=== PATIENT | male | born 1940 | race Caucasian/White ===

== ENCOUNTER 2020-11-08 02:52 | Inpatient (IN) ==
[2020-11-08 03:33] LABS: Basophils # (auto) 0.01 K/uL (0-0.2); Basophils % (auto) 0.1 %; Eosinophils # (auto) 0.75 K/uL (0-0.5); Eosinophils % (auto) 5.7 %; Hematocrit (blood only) 42.8 % (42-52); Hemoglobin 14.9 g/dL (14.0-18.0); Immature Granulocytes # (auto) 0.04 K/uL (0.00-0.02); Immature Granulocytes % (auto) 0.3 %; Lymphocytes # (auto) 1.04 K/uL (1.2-3.4); Lymphocytes % (auto) 7.9 %; Mean Corpuscular Hemoglobin 31.4 pg (25-34); Mean Corpuscular Hgb Conc 34.8 g/dL (32-36); Mean Corpuscular Volume 90.3 fL (80-100); Mean Platelet Volume 9.6 fL (7.4-10.4); Monocytes # (auto) 0.73 K/uL (0.11-0.59); Monocytes % (auto) 5.5 %; Neutrophils % (auto) 80.5 %; Platelet Count 254 K/uL (130-400); RDW Coefficient of Variation 14.1 % (11.5-14.5); RDW Standard Deviation 45.8 fL (36.4-46.3); Red Blood Count 4.74 M/uL (4.7-6.1); White Blood Count 13.17 K/uL (4.8-10.8)
[2020-11-08 03:44] LABS: Base Excess ABG 0.1 mEq/L (-9-1.8); HCO3 ABG 23 mmol/L (19-24); Oxygen Saturation ABG 91.6 % (90-95); PCO2 ABG 33 mmHg (35-46); PO2 ABG 55 mmHg (80-95); pH ABG 7.46 (7.35-7.45)
[2020-11-08 03:51] LABS: Allen Test Pos (Pos)
[2020-11-08 03:52] LABS: Albumin Level 3.2 gm/dl (3.4-5.0); BUN Creatinine Ratio 12.6 (10-20); Calcium 8.4 mg/dl (8.5-10.1); Creatinine Clr Calc Pharmacy 53.7 ml/min; Est GFR (African American) 63.7; Est GFR (Non-African American) 54.9; Potassium 3.7 mmol/L (3.5-5.1)
[2020-11-08 03:54] LABS: Bilirubin,Total 0.5 mg/dl (0.2-1); Globulin 3.2 gm/dl (2.5-4.0); Total Protein 6.4 gm/dl (6.4-8.2); Troponin I 0.02 ng/ml (0-0.045)
[2020-11-08 04:23] LABS: Influenza A virus by PCR Negative (Neg); Influenza B virus by PCR Negative (Neg); RSV by PCR Negative (Neg)
[2020-11-08 04:42] LABS: SARS CoV2 RNA(COVID-19) InHosp POSITIVE (Negative)
[2020-11-08] MEDS ORDERED: dexAMETHasone 6 MG in SYRINGE 0 ML IV STA (05:48)
[2020-11-08] MEDS ORDERED: LEVALBUTEROL TARTRATE 15 GM HFA.AER.AD INH STA (05:48)
[2020-11-08] MEDS ORDERED: DEXAMETHASONE SOD INJ 4 MG/ML VIAL IV STA (05:53)
[2020-11-08 06:10] LABS: Partial Thromboplastin Ratio 0.9; Partial Thromboplastin Time 23.9 Seconds (21.0-31.0)
--- NOTE | 2020-11-08 06:27 | History & Physical Report ---
Date of Service November 08, 2020 Assessment & Plan (1) Acute hypoxemic respiratory failure: Secondary to COVID-19 pneumonia hypertension, stable hyperlipidemia on statin Rx chronic LBBB hx NAFLD as per records Hyperglycemia, possible prediabetes as per patient past tobacco abuse Medical telemetry Supplemental O2 Decadron, Remdesivir for severe COVID-19 illness MDI RTC (Patient was counseled regarding potential adverse effects from Remdesivir therapy and provided with patient education sheet. Patient also agreeable to convalescent plasma if warranted. Verbal consent obtained for blood product administration.) Pulmonary consult if without improvement Check hemoglobin A1c Basal insulin, ISS BG goal [id number], carb count coverage in anticipation of hyperglycemia following Decadron course DVT prophylaxis. Lovenox subcu Full code Total critical care time was 40 minutes. Text document was generated using [employer] voice recognition software. It may contain grammatical or spelling errors. Kindly contact undersigned for clarification of any documentation item in quest ion. History of Present Illness Chief Complaint: Shortness of breath Primary Care Provider: Tony Dupree MD History obtained from patient and records. Medical history significant for hypertension, hyperlipidemia, chronic left bundle branch block, BPH, kidney stones, NAFLD as per records, possible prediabetes as per patient, past tobacco abuse. Last confinement 2012 for gallstone pancreatitis status post laparoscopic cholecystectomy. Patient had the second dose of his COVID-19 vaccine about 10 days ago. Few days history of nasal congestion, cough productive of clear sputum. Increasing shortness of breath without chest pain. No fluid retention. Ankle swelling from not moving a lot as per patient. No known recent COVID-19 contacts. O2 sats noted to be 80s upon arrival of EMS at home. Patient given neb treatment en route to the hospital. MEDICAL HISTORY: As above. SURGICAL HISTORY: Lithotripsy. Cleft lip and cleft palate surgery. Cholecystectomy FAMILY HISTORY: Melanoma. PERSONAL/SOCIAL HISTORY: Remote tobacco abuse. Denies chronic intake alcohol. Retired from sales work, prior work as an EMT. Allergies Allergy/AdvReac Type Severity Reaction Status Date / Time No Known Allergies Allergy Unknown Verified 11/08/20 03:57 Home Medications Medication Instructions Recorded Confirmed Type metoprolol succinate 100 mg PO QPM 09/22/18 11/08/20 History tamsulosin 0.4 mg PO QPM 09/22/18 11/08/20 History atorvastatin 40 mg PO QPM 11/08/20 11/08/20 History lisinopril 10 mg PO QPM 11/08/20 11/08/20 History Past Med/Surg History Medical History (Updated 11/08/20 @ 06:52 by Ganga Aleman MD) High cholesterol Hx of cleft palate surgically repaired Hypertension Surgical History History of cataract surgery rt. 11/23/18. 4mg versed. no issues. Hx of cholecystectomy Social History Smoking Status: Former smoker Tobacco Type: Cigarettes Hx Alcohol Use: No Hx Substance Use: No Preferred Language: Burkinan Communication Ability: Effective [employer] Project Manager Required: No Beliefs That Will Affect Care: None Current Living Situation: Alone Feels Safe at Home: Yes Assistive Devices: Denture - Upper, Denture - Lower and Glasses Review of Systems Review of Systems: As per HPI, all 10 systems reviewed, all other ROS negative Physical Exam Physical Exam: GENERAL: Comfortable, no respiratory distress, obese, pleasant SKIN: Normal color, warm HEENT: [place] palpebral conjunctivae, no ptosis, moist buccal mucosa, nasal cannula in place NECK : Supple, short neck, no tenderness CHEST : Decreased breath sounds, occasional expiratory wheezes, no tenderness HEART : Tachycardic , no obvious murmurs ABDOMEN: Some distention, nontender EXTREMITIES : Minimal LE swelling, no LE tenderness, no other conspicuous deformities noted NEUROLOGIC : Coherent, no facial asymmetry, no other gross focality Results & Data Results & Data ([facility]) Vital Signs (Past 12 Hours) Vital Signs Temp Pulse Pulse Resp BP Pulse Ox 11/08/20 06:25 101 H 22 97 11/08/20 05:30 95 H 19 94 11/08/20 05:00 87 21 96 11/08/20 04:30 108 H 19 93 11/08/20 04:00 102 H 23 91 11/08/20 03:47 92 11/08/20 03:30 108 H 36 H 89 L 11/08/20 03:10 36.8 C 104 H 18 88 L 11/08/20 03:03 113 H 29 H 87 L 11/08/20 03:01 117 H 26 H 116/71 87 L Laboratory Results Laboratory Results WBC 13.17 K/uL (4.8-10.8) H 11/08/20 03:21 RBC 4.74 M/uL (4.7-6.1) 11/08/20 03:21 Hgb 14.9 g/dL (14.0-18.0) 11/08/20 03:21 Hct 42.8 % (42-52) 11/08/20 03:21 MCV 90.3 fL (80-100) 11/08/20 03:21 MCH 31.4 pg (25-34) 11/08/20 03:21 MCHC 34.8 g/dL (32-36) 11/08/20 03:21 RDW Std Deviation 45.8 fL (36.4-46.3) 11/08/20 03:21 RDW Coeff of Norma 14.1 % (11.5-14.5) 11/08/20 03:21 Plt Count 254 K/uL (130-400) 11/08/20 03:21 MPV 9.6 fL (7.4-10.4) 11/08/20 03:21 Immature Gran % (Auto) 0.3 % 11/08/20 03:21 Neut % (Auto) 80.5 % 11/08/20 03:21 Lymph % (Auto) 7.9 % 11/08/20 03:21 Leake % (Auto) 5.5 % 11/08/20 03:21 Eos % (Auto) 5.7 % 11/08/20 03:21 Baso % (Auto) 0.1 % 11/08/20 03:21 Neut # (Auto) 10.60 K/uL (1.4-6.5) H 11/08/20 03:21 Lymph # (Auto) 1.04 K/uL (1.2-3.4) L 11/08/20 03:21 Leake # (Auto) 0.73 K/uL (0.11-0.59) H 11/08/20 03:21 Eos # (Auto) 0.75 K/uL (0-0.5) H 11/08/20 03:21 Baso # (Auto) 0.01 K/uL (0-0.2) 11/08/20 03:21 Immature Gran # (Auto) 0.04 K/uL (0.00-0.02) H 11/08/20 03:21 APTT 23.9 Seconds (21.0-31.0) 11/08/20 03:26 PTT Ratio 0.9 11/08/20 03:26 ABG pH 7.46 (7.35-7.45) H 11/08/20 03:33 ABG pCO2 33 mmHg (35-46) L 11/08/20 03:33 ABG pO2 55 mmHg (80-95) L 11/08/20 03:33 ABG HCO3 23 mmol/L (19-24) 11/08/20 03:33 ABG O2 Saturation 91.6 % (90-95) 11/08/20 03:33 ABG Base Excess 0.1 mEq/L (-9-1.8) 11/08/20 03:33 Shahbaz Test Pos (Pos) 11/08/20 03:33 Barometric Pressure 733.0 mm/Hg 11/08/20 03:33 Oxygen Given 2L 11/08/20 03:33 Sodium 141 mmol/L (136-145) 11/08/20 03:21 Potassium 3.7 mmol/L (3.5-5.1) 11/08/20 03:21 Chloride 108 mmol/L (98-107) H 11/08/20 03:21 Carbon Dioxide 26 mmol/L (21-32) 11/08/20 03:21 Anion Gap 7.0 (3-11) 11/08/20 03:21 BUN 16 mg/dl (7-18) 11/08/20 03:21 Creatinine 1.24 mg/dl (0.6-1.4) 11/08/20 03:21 Est Cr Clr Drug Dosing 53.7 ml/min 11/08/20 03:21 Est GFR ( Amer) 63.7 11/08/20 03:21 Est GFR (Non-Af Amer) 54.9 11/08/20 03:21 BUN/Creatinine Ratio 12.6 (10-20) 11/08/20 03:21 Glucose 195 mg/dl (70-99) H 11/08/20 03:21 Calcium 8.4 mg/dl (8.5-10.1) L 11/08/20 03:21 Total Bilirubin 0.5 mg/dl (0.2-1) 11/08/20 03:21 AST 24 U/L (15-37) 11/08/20 03:21 ALT 33 U/L (12-78) 11/08/20 03:21 Alkaline Phosphatase 151 U/L (45-117) H 11/08/20 03:21 Troponin I 0.020 ng/ml (0-0.045) 11/08/20 03:21 NT-Pro-B Natriuret Pep 94 pg/ml (0-1800) 11/08/20 03:21 Total Protein 6.4 gm/dl (6.4-8.2) 11/08/20 03:21 Albumin 3.2 gm/dl (3.4-5.0) L 11/08/20 03:21 Globulin 3.2 gm/dl (2.5-4.0) 11/08/20 03:21 Albumin/Globulin Ratio 1.0 (0.9-2) 11/08/20 03:21 Procalcitonin 0.14 ng/ml (0-0.5) 11/08/20 03:21 COVID-19 Eval Order CovFluRsv at [facility] 11/08/20 03:25 SARS-CoV-2 (PCR) POSITIVE (Negative) A* 11/08/20 03:25 Influenza Type A (PCR) Negative (Neg) 11/08/20 03:25 Influenza Type B (PCR) Negative (Neg) 11/08/20 03:25 RSV (RT-PCR) Negative (Neg) 11/08/20 03:25 Diagnostic Findings Chest x-ray as per my interpretation atelectasis, cardiomegaly EKG as per my interpretation : Rate 110, sinus tachycardia, LAD, LAFB, LBBB
[2020-11-08] MEDS ORDERED: POTASSIUM CHLORIDE 40 MEQ in SODIUM CHLORIDE 0.9% 1000ML 1,000 ML IV ONE (06:31)
[2020-11-08] MEDS ORDERED: REMDESIVIR 200 MG in SODIUM CHLORIDE 0.9% 210 ML IV ONE (06:45)
--- NOTE | 2020-11-08 07:03 | XRay Report ---
XR chest 1V portable CLINICAL HISTORY: Shortness of breath COMPARISON STUDY: 07/19/2019 FINDINGS: The cardiac and mediastinal contours are normal. There is no evidence of focal pulmonary co nsolidation. There is no evidence of failure. No pleural effusions are visualized.[ IMPRESSION: No active disease in the chest. ACT 112: Negative or not required by law. Electronically signed by: Price Fiore M.D. 11/08/2020 7:01 AM
[2020-11-08] MEDS ORDERED: CARBOHYDRATES FOR HYPOGLYCEMIA PO PRN (08:38)
[2020-11-08] MEDS ORDERED: DEXTROSE 50% 50 ML SYRINGE IV PRN (08:38)
[2020-11-08] MEDS ORDERED: GLUCOSE 40% GEL 15 GM TUBE PO PRN (08:38)
[2020-11-08] MEDS ORDERED: GLUCOSE 10 TABS/TUBE PO PRN (08:38)
[2020-11-08] MEDS ORDERED: GLUCAGON FOR INJ 1 MG VIAL SQ PRN (08:38)
[2020-11-08] MEDS ORDERED: ACETAMINOPHEN 325 MG TAB PO PRN (08:38)
[2020-11-08] MEDS ORDERED: PROMETHAZINE HCL 12.5 MG in SODIUM CHLORIDE 0.9% 50 ML IV PRN (08:38)
[2020-11-08 08:53] LABS: Estimated Average Glucose 192 mg/dl; Hemoglobin A1C 8.3 % (4.5-5.6)
[2020-11-08] MEDS ORDERED: INSULIN GLARGINE SOLOSTAR 100 UNITS/ML 3 ML PEN SC SCH (09:00)
[2020-11-08] MEDS: SODIUM CHLORIDE 0.9% 10ML FLUSH IV SCH (09:13)
[2020-11-08 09:23] LABS: D Dimer 780 ug/L FEU (0-500)
[2020-11-08] MEDS: ENOXAPARIN INJ 40 MG/0.4 ML SYR SQ SCH (09:36)
[2020-11-08] MEDS: INSULIN ASPART 100 UNITS/ML 3 ML PEN SC SCH ×4 (09:36→21:25)
[2020-11-08] MEDS ORDERED: PHARMACY GLYCEMIC MGMT CONSULT PRN (09:54)
[2020-11-08] MEDS ORDERED: INSULIN GLARGINE SOLOSTAR 100 UNITS/ML 3 ML PEN SC ONE (10:00)
--- NOTE | 2020-11-08 10:14 | Pharmacy Report ---
Pharmacy Glycemic Short Note 2 - Date of Service November 08, 2020 - Glycemic Short BSG Results (Last 24 hours): 11/08/20 11/08/20 11/08/20 03:21 09:19 09:20 Glucose 195 H POC Glucose 304 H* 306 H* OUTPATIENT ANTIDIABETIC REGIMEN: * N/A * A1c = 8.3% on 11/08/20 ASSESSMENT: * 80yo male with no prior history of diabetes - no antidiabetic agents as an outpatient. A1c today is diagnostic for diabetes as A1c > 6.5% * Goal A1c is likely 8% based on age/comorbidities * Pt initiated on high dose IV steroids with dexamethasone 6mg IV daily for COVID PNA. * Baseline insulin resistance plus steroids resulted in severe hyperglycemia * Will start with high stress weight based dosing of insulin and titrate based on BSG trends. * Would usually use NPH to cover once daily DXM; however Lantus already ordered on admission. Hesitant to use 3 insulins (Lantus + NPH + NovoLog) in an insulin niave patient. Do not want to cause hypo and then an aversion to insulin. Therefore, will start with Lantus + NovoLog and add NPH if needed. * Will start with 0.4 units/kg Lantus (this is the NPH dosing that would be used for DXM) and titrate based on BSGs * Weight/stress of 3 NovoLog q4hrs. PLAN FOR INPATIENT GLYCEMIC CONTROL: * Basal insulin * Lantus 39 units (0.4 units/kg) SQ daily with DXM - dose will need adjusted downwards if dexamethsone held/dc * Bolus insulin * NovoLog per scale ACHS or Q6hrs while NPO * Goal Range: Low 120 mg/dL - High 160 mg/dL * Correction Factor: 15 mg/dL/unit * Nutritional / Prandial insulin per carb ratio of 1 unit per 6 grams CHO consumed PLAN FOR DISCHARGE: * A1c = 8.3% on 11/08/20 * Goal A1c = 8 % based on age and comorbidities * Metformin should be started at the time type 2 diabetes is diagnosed unless there are contraindications. Metformin is effective and safe, is inexpensive, and may reduce risk of cardiovascular events and . * B12 supplementation may be necessary with superintendent container terminal metformin use * FDA has revised the label for metformin to reflect its safety in patients with eGFR 30 mL/min or above * Recommend starting: Metformin XR 500mg PO daily with evening meal. Typically the XR formulation of metformin is better tolerated than the immediate release formulation. Continue to titrate metformin dosing upwards as recommended. Dosage increases should be made in increments of 500 mg weekly, up to 2,000 mg/day PO, given in divided doses. Doses above 2000 mg/day may be better tolerated if divided and given 3 times per day with meals. Max: 2,550 mg/day PO, in divided doses * Support Patient Self-Management * Healthy Lifestyle (diet, exercise, and smoking cessation) * Disease self-management (SMBG) * Prevention of complications (BP, Lipid goals, Immunizations) * Consider outpatient Diabetes Self-Management Education & Support * These recommendations may change if patient is dc on steroid course or renal function declines.
[2020-11-08] MEDS: LEVALBUTEROL TARTRATE 15 GM HFA.AER.AD INH SCH ×4 (11:28→19:10)
[2020-11-08] MEDS ORDERED: OPTIRAY 320 125ml IV ONE (12:24)
--- NOTE | 2020-11-08 12:52 | CT Scan Report ---
CT angio chest PE protocol CT DOSE: 539.68 mGy.cm HISTORY: 80 years-old Male with PE. Acute shortness of breath TECHNIQUE: Multiple CTA images of the chest were obtained after the intravenous administration of Opt iray 320. Coronal and sagittal MIPS were obtained from the axial data set and were submitted for rev iew. All measurements were obtained according to NASCET criteria. A dose lowering technique was util ized adhering to the principles of ALARA. COMPARISON: Chest radiograph of same day FINDINGS: CTA: The heart is normal in size. There is no pericardial effusion. Extensive coronary artery calcificatio ns. Atheromatous plaque of the thoracic aorta without aneurysm or dissection. Mixed plaque at the lei gin of the right subclavian artery is noted resulting in less than 50% luminal narrowing. Pulmonary a rtery is opacified to the level of the segmental branches and demonstrates no filling defects to sugg est thromboembolic disease. CT CHEST: Diminutive thyroid. There are numerous prominent nonenlarged mediastinal and hilar lymph nodes presen t which measure up to 8-9 mm. No pathologically enlarged lymph nodes by CT size criteria. There is no pneumothorax or pleural effusion. Mild subsegmental bibasilar atelectasis. Bronchial wall thickening with bibasilar mucous plugging. 6 mm groundglass nodule of the apical segment right upper lobe, image 239 series 4. 8 mm groundglass nodule of the anterior segment right upper lobe on image 182. 4 mm groundglass nodule of the right lower lobe on image 94. 5 mm groundglass nodule of the supe rior segment left lower lobe on image 209. 7 mm groundglass nodule of the left lower lobe on image 13 3. There are a few scattered low suspicion solid pulmonary nodules noted bilaterally measuring up to 4 mm within the right lung apex. 5 mm fissural nodule of the left midlung is suggestive of a benign l ymph node. Mild nonspecific distal esophageal wall thickening. Hepatic steatosis. Unremarkable soft tissues. Deg enerative changes of the spine and shoulders. IMPRESSION: 1. No pulmonary emboli. 2. Bronchial wall thickening suggestive of bronchitis or reactive airway disease with bibasilar mucou s plugging and mild bibasilar atelectasis. 3. No pleural effusion or airspace consolidation to suggest pneumonia. 4. 5 total bilateral groundglass nodules measure up to 8 mm within the right upper lobe. Follow-up gu idelines provided below. Follow-up CT of the chest is recommended in 6 months. 5. There are a few solid nodules of the lungs measuring up to 4 mm which are of low clinical suspicio n. Please refer to below summary of Fleischner criteria recommendations for follow-up of incidental CT n odules (Mary Beth Kennedy, Guidelines for management of small pulmonary nodules detected on CT scans: A zechariah chi from the Fleischner Society, Radiology 237: [phone].) SOLID NODULES Multiple nodules size: <6 mm * Low risk patients: no routine follow-up * high risk patients: optional CT at 12 months Note: newly detected indeterminate nodule in persons 35 years of age or older. * Low risk patients: minimal or absent history of smoking and/or other known risk factors * high risk patients: history of smoking or of other known risk factors (e.g. first degree relative with lung cancer, or exposure to asbestos, radon, uranium) * if a nodule up to 8 mm is partly solid or is ground glass further follow-up is required after 24 m onths to exclude possible slow growing adenocarcinoma (SERA) SUBSOLID NODULES Multiple subsolid nodules * nodule size <6 mm - follow-up CT at 3-6 months, consider further follow-up at 2 and 4 years if sta ble * nodule size >=6 mm - follow-up CT at 3-6 months, subsequent management based on the most suspiciou s nodule(s) ACT 112: Negative or not required by law. The above report was generated using voice recognition software. It may contain grammatical, syntax o r spelling errors. Electronically signed by: Leonel Argueta M.D. 11/08/2020 12:51 PM
--- NOTE | 2020-11-08 16:50 | Electrocardiogram Report ---
Test Reason : Blood Pressure : / mmHG Vent. Rate : 109 BPM Atrial Rate : 109 BPM P-R Int : 148 ms QRS Dur : 136 ms QT Int : 368 ms P-R-T Axes : 044 -27 116 degrees QTc Int : 495 ms Sinus tachycardia Left bundle branch block Abnormal ECG When compared with ECG of 19-JUL-2019 11:04, No significant change was found Confirmed by Randolph Beltran ([id number]) on 11/08/2020 4:50:06 PM Referred By: REFERRED SELF Confirmed By:Holland Beltran
--- NOTE | 2020-11-08 16:56 | Hospitalist Progress Note ---
Date of Service November 08, 2020 Assessment & Plan (1) Acute hypoxemic respiratory failure: Secondary to COVID-19 CXR showed no infiltrate CTA chest showed no pulmonary emboli. Bronchial wall thickening suggestive of bronchitis or reactive airway disease with bibasilar mucous plugging and mild bibasilar atelectasis.No pleural effusion or airspace consolidation to suggest pneumonia. Starting on Dexamethasone and Remdesevir, will continue Currently saturated well on RA Will hold on convalescent plasma since pt saturated 94% and above on RA Will follow antiinflammatory markers such as Ferritin, ESR, CRP and procalcitonin Will add doxycycline or Zithromax for the bronchitis Continue respiratory treatment Will add guaifenesin prn Bronchitis CTA chest showed Bronchial wall thickening suggestive of bronchitis or reactive airway disease with bibasilar mucous plugging and mild bibasilar atelectasis Will add abx to complete 5 days course Lung Nodule CTA chest showed 5 total bilateral groundglass nodules measure up to 8 mm within the right upper lobe. Follow-up guidelines provided below. Follow-up CT of the chest is recommended in 6 months. Diabetes type 2 Most recent Hab1c 8.3 (11/08) Not on any diabetes medication BS elevated Continue Lantus and novolog sliding scale Pharmacy on board for glycemic management HTN BP stable Continue Lisinopril BP stable DVT px on Lovenox Code status Full code Admission and Anticipated Discharge Date Admission Date: November 08, 2020 Subjective Pt was seen and examined for follow up of covid 19 and SOB Sitting at the edge of the bed with no distress Pt said that his breathing is much better He said that he has not been coughing and has been on RA Denies any chest pain, palpitation, dizziness and SOB Physical Exam Physical Exam: General- No acute distress Head- atraumatic Eyes- PERRL, EOMI, ENT- oropharynx clear Neck- supple, no JVD Lungs- clear to auscultation Heart- regular rhythm; no murmur Abdomen- normal bowel sounds, soft, nontender Extremities- no calf tenderness Neuro- alert, oriented x 3; PERRL, EOMI; no facial palsy; no dysarthria Skin- warm & dry Results & Data Results & Data ([facility]) Vital Signs (Past 12 Hours) Vital Signs Temp Pulse Pulse Resp BP BP Pulse Ox 11/08/20 16:17 36.6 C 83 20 108/57 L 93 11/08/20 16:12 73 11/08/20 15:24 80 14 96 11/08/20 13:14 93 11/08/20 11:28 75 16 95 11/08/20 11:14 36.8 C 82 16 121/71 95 11/08/20 10:00 92 H 11/08/20 08:06 36.5 C 102 H 18 150/70 H 93 11/08/20 07:00 88 21 96 11/08/20 06:30 105 H 97 11/08/20 06:25 101 H 22 97 11/08/20 06:00 88 23 94 11/08/20 05:35 98 H 23 104/62 93 11/08/20 05:30 95 H 19 94 11/08/20 05:00 87 21 96
[2020-11-08] MEDS ORDERED: METOPROLOL SUCC 50MG EXT REL TAB PO SCH (21:00)
[2020-11-08] MEDS ORDERED: ATORVASTATIN 40 MG TAB PO SCH (21:00)
[2020-11-08] MEDS ORDERED: lisinopril 10 MG TAB PO SCH (21:00)
[2020-11-08] MEDS ORDERED: TAMSULOSIN HCL 0.4 MG CAP PO SCH (21:00)
[2020-11-09] MEDS: INSULIN ASPART 100 UNITS/ML 3 ML PEN SC SCH ×5 (00:01→17:01)
[2020-11-09] MEDS: DOXYCYCLINE HYCLATE 100 MG CAP PO SCH ×2 (00:14→08:20)
--- NOTE | 2020-11-09 01:04 | Emergency Department Note ---
History of Present Illness General Chief complaint: Respiratory Problems Stated complaint: RESPIRATORY DIFFICULTY Time Seen by Provider: 11/08/20 03:02 History of Present Illness Maximum Pain Intensity: 0 This is a 80-year-old male presenting to the emergency department for evaluation of shortness of breath and difficulty breathing worsening over the past several days. The patient is usually healthy essentially with only a history of hypertension. He has had both of his COVID-19 vaccinations, and believes that he had the Pfizer product. The patient has not had distinct fever at home. His symptoms do worsen with movement and walking. He is not complaining of distinct chest pain or abdominal pain. He has not taken anything [id number] for symptoms. There may be a positional component, or laying down worsens his breathing. He did contact [address] [place] [address] and on EMS arrival his oxygen saturation was 85 to 86% on room air. He does not wear oxygen at home. He does have a very old tobacco history, but ceased more than 40 years ago. He did get a breathing treatment prehospital, and was placed on 3 L nasal cannula which seems to have helped his symptoms. The patient rates his current discomfort a 2/10. Home Medications Medication Instructions Recorded Confirmed Type metoprolol succinate 100 mg PO QPM 09/22/18 11/08/20 History tamsulosin 0.4 mg PO QPM 09/22/18 11/08/20 History atorvastatin 40 mg PO QPM 11/08/20 11/08/20 History lisinopril 10 mg PO QPM 11/08/20 11/08/20 History Allergies Allergy/AdvReac Type Severity Reaction Status Date / Time No Known Allergies Allergy Unknown Verified 11/08/20 03:57 Past Med/Surg History Medical History (Updated 11/09/20 @ 01:07 by Arthur Ospina PA-C) High cholesterol Hx of cleft palate surgically repaired Hypertension Surgical History History of cataract surgery rt. 11/23/18. 4mg versed. no issues. Hx of cholecystectomy Social History Smoking Status: Former smoker Tobacco Type: Cigarettes Hx Alcohol Use: No Hx Substance Use: No Preferred Language: Turkmen Communication Ability: Effective Machine Accountant Required: No Beliefs That Will Affect Care: None Current Living Situation: Spouse Other Information That Helps Us Care for You: No Feels Safe at Home: Yes Safety Concerns: Feels Safe At This Time Assistive Devices: None Review of Systems A total of 10 systems reviewed and were otherwise negative Physical Exam Vital Signs Vital Signs - 24 hr 11/08/20 03:01 11/08/20 03:03 11/08/20 03:10 Temperature 36.8 C Temperature Source Oral Pulse Rate 117 H 113 H 104 H Pulse Rate [Right Finger] Pulse Rate from SpO2 Sensor 117 H 115 H Respiratory Rate 26 H 29 H 18 Respiratory Effort / Characteristics Non-Labored Respiratory Depth Normal Respiratory Pattern Regular Blood Pressure 116/71 Blood Pressure Mean 86 Blood Pressure Position Lying Pulse Oximetry 87 L 87 L 88 L Oxygen Delivery Method Nasal Cannula Oxygen Flow Rate 2 Sepsis Recent Fever Within 48 Hours No Sepsis New/Unexplained Change in Mental Status No Sepsis Action Taken by Nursing No Action Required Oxygen Flow Rate - Titration 92 11/08/20 03:30 11/08/20 03:47 11/08/20 04:00 Temperature Temperature Source Pulse Rate 108 H 102 H Pulse Rate [Right Finger] Pulse Rate from SpO2 Sensor 109 H 99 H Respiratory Rate 36 H 23 Respiratory Effort / Characteristics Respiratory Depth Respiratory Pattern Blood Pressure Blood Pressure Mean Blood Pressure Position Pulse Oximetry 89 L 92 91 Oxygen Delivery Method Nasal Cannula Oxygen Flow Rate 3 Sepsis Recent Fever Within 48 Hours Sepsis New/Unexplained Change in Mental Status Sepsis Action Taken by Nursing Oxygen Flow Rate - Titration 11/08/20 04:30 11/08/20 05:00 11/08/20 05:30 Temperature Temperature Source Pulse Rate 108 H 87 95 H Pulse Rate [Right Finger] Pulse Rate from SpO2 Sensor 109 H 86 93 H Respiratory Rate 19 21 19 Respiratory Effort / Characteristics Respiratory Depth Respiratory Pattern Blood Pressure Blood Pressure Mean Blood Pressure Position Pulse Oximetry 93 96 94 Oxygen Delivery Method Oxygen Flow Rate Sepsis Recent Fever Within 48 Hours Sepsis New/Unexplained Change in Mental Status Sepsis Action Taken by Nursing Oxygen Flow Rate - Titration 11/08/20 05:35 11/08/20 06:00 11/08/20 06:25 Temperature Temperature Source Pulse Rate 98 H 88 Pulse Rate [Right Finger] 101 H Pulse Rate from SpO2 Sensor 96 H 88 Respiratory Rate 23 23 22 Respiratory Effort / Characteristics Spontaneous Respiratory Depth Respiratory Pattern Blood Pressure 104/62 Blood Pressure Mean 76 Blood Pressure Position Pulse Oximetry 93 94 97 Oxygen Delivery Method Nasal Cannula Oxygen Flow Rate 3 Sepsis Recent Fever Within 48 Hours Sepsis New/Unexplained Change in Mental Status Sepsis Action Taken by Nursing Oxygen Flow Rate - Titration 11/08/20 06:30 Temperature Temperature Source Pulse Rate 105 H Pulse Rate [Right Finger] Pulse Rate from SpO2 Sensor 105 H Respiratory Rate Respiratory Effort / Characteristics Respiratory Depth Respiratory Pattern Blood Pressure Blood Pressure Mean Blood Pressure Position Pulse Oximetry 97 Oxygen Delivery Method Oxygen Flow Rate Sepsis Recent Fever Within 48 Hours Sepsis New/Unexplained Change in Mental Status Sepsis Action Taken by Nursing Oxygen Flow Rate - Titration VITALS: Vitals are noted on the nurse's note and reviewed by myself. Vital signs stable with oxygen saturation holding at 92% on 3 L nasal cannula GENERAL: Well-developed, well-nourished, white male, who is in no acute distress and resting comfortably. Patient is cooperative with the examination. HEAD: Normocephalic atraumatic. NECK: Supple without nuchal rigidity. No lymphadenopathy. No thyromegaly. Cervical spine is nontender. HEART: Regular rate and rhythm without murmurs gallops or rubs. LUNGS: Clear to auscultation bilaterally without wheezes, rales or rhonchi. No retractions or accessory muscle use. ABDOMEN: Positive normal bowel sounds x 4. Soft, nontender, without masses or organomegaly. No guarding or rebound tenderness. MUSCULOSKELETAL: No muscle atrophy, erythema, or edema noted. Full range of motion in all extremities. NEURO: Patient was alert and oriented to person place and time. CN II through XII grossly intact. SKIN: The skin was without rashes, erythema, edema, or bruising. Capillary refill less than 2 seconds. Course Administered Medications Atorvastatin Calcium (Atorvastatin 40 Mg Tab) 40 mg PO QPM ROGERS Stop: 12/08/20 20:59 Last Admin: 11/08/20 21:16 Dose: 40 mg Documented by: [id number] Doxycycline Hyclate (Doxycycline Hyclate 100 Mg Cap) 100 mg PO BID ROGERS Stop: 11/15/20 23:29 Last Admin: 11/09/20 00:14 Dose: 100 mg Documented by: [id number] Enoxaparin Sodium (Enoxaparin Inj 40 Mg/0.4 Ml Syr) 40 mg SQ QAM ROGERS Stop: 12/08/20 08:59 Last Admin: 11/08/20 09:36 Dose: 40 mg Documented by: [id number] Potassium Chloride 40 meq/ (Sodium Chloride) 1,020 mls @ 50 mls/hr IV .[id number] Stop: 11/09/20 02:54 Last Infusion: 11/08/20 11:05 Dose: 50 mls/hr Documented by: [id number] Infusion: 11/08/20 09:10 Dose: 0 mls/hr Documented by: [id number] Admin: 11/08/20 09:10 Dose: 50 mls/hr Documented by: [id number] Insulin Aspart (Insulin Aspart 100 Units/Ml 3 Ml Pen) 0 units SC ACHS [facility] Stop: 12/08/20 08:37 Last Admin: 11/08/20 21:25 Dose: Not Given Documented by: [id number] Cosigned by: [id number] Admin: 11/08/20 17:17 Dose: 13 units Documented by: [id number] Cosigned by: [id number] Admin: 11/08/20 11:58 Dose: 13 units Documented by: [id number] Cosigned by: [id number] Admin: 11/08/20 09:36 Dose: 9 units Documented by: [id number] Cosigned by: [id number] Insulin Aspart (Insulin Aspart 100 Units/Ml 3 Ml Pen) 0 units SC TODAY@0000,0400 [facility] Stop: 11/09/20 04:01 Last Admin: 11/09/20 00:01 Dose: Not Given Documented by: [id number] Cosigned by: [id number] Levalbuterol HCl (Levalbuterol Tartrate 15 Gm Hfa.Aer.Ad) 2 puffs INH QIDR [facility] Stop: 12/08/20 08:59 Last Admin: 11/08/20 19:10 Dose: 2 puffs Documented by: [id number] Admin: 11/08/20 15:24 Dose: 2 puffs Documented by: [id number] Admin: 11/08/20 11:28 Dose: 2 puffs Documented by: [id number] Admin: 11/08/20 11:28 Dose: Not Given Documented by: [id number] Lisinopril (Lisinopril 10 Mg Tab) 10 mg PO QPM [facility] Stop: 12/08/20 20:59 Last Admin: 11/08/20 21:17 Dose: 10 mg Documented by: [id number] Metoprolol Succinate (Metoprolol Succ 50mg Ext Rel Tab) 100 mg PO QPM [facility] Stop: 12/08/20 20:59 Last Admin: 02/25/21 21:17 Dose: 100 mg Documented by: [id number] Sodium Chloride (Sodium Chloride 0.9% 10ml Flush) 30 ml IV DAILY@1300 ROGERS Stop: 11/12/20 13:01 Last Admin: 11/08/20 09:13 Dose: 30 ml Documented by: [id number] Tamsulosin HCl (Tamsulosin Hcl 0.4 Mg Cap) 0.4 mg PO QPM ROGERS Stop: 12/08/20 20:59 Last Admin: 11/08/20 21:16 Dose: 0.4 mg Documented by: [id number] Discontinued Medications Dexamethasone (Dexamethasone Sod Inj 4 Mg/Ml Vial) 6 mg IV NOW STA Stop: 11/08/20 05:54 Last Admin: 11/08/20 06:27 Dose: 6 mg Documented by: [id number] Remdesivir 200 mg/ Sodium (Chloride) 250 mls @ 125 mls/hr IV ONE ONE; Protocol Stop: 11/08/20 08:44 Last Infusion: 11/08/20 11:05 Dose: 0 mls/hr Documented by: [id number] Admin: 11/08/20 08:56 Dose: 125 mls/hr Documented by: [id number] Insulin Glargine (Insulin Glargine Solostar 100 Units/Ml 3 Ml Pen) 5 units SC DAILY ROGERS Stop: 12/08/20 08:59 Last Admin: 11/08/20 09:36 Dose: 5 units Documented by: [id number] Cosigned by: [id number] Insulin Glargine (Insulin Glargine Solostar 100 Units/Ml 3 Ml Pen) 34 units SC NOW ONE Stop: 11/08/20 10:01 Last Admin: 11/08/20 11:03 Dose: 34 units Documented by: [id number] Cosigned by: [id number] Ioversol (Optiray 320 125ml) 120 ml IV ONCE ONE Stop: 11/08/20 12:25 Last Admin: 11/08/20 12:25 Dose: 120 ml Documented by: [id number] Levalbuterol HCl (Levalbuterol Tartrate 15 Gm Hfa.Aer.Ad) 2 puffs INH NOW STA Stop: 11/08/20 05:49 Last Admin: 11/08/20 06:25 Dose: 2 puffs Documented by: [id number] Medical Decision Making Differential Diagnosis Differential diagnosis includes, but is not limited to: Myocardial infarction, dysrhythmia, pericarditis, pneumothorax, aortic aneurysm/dissection, DVT/PE, anxiety, GERD, PUD, electrolyte imbalance, thyroid disorder, pneumonia, bronchitis, pancreatitis, and others Laboratory Data Result diagrams: 11/08/20 03:21 11/08/20 03:21 Lab Results 11/08/20 11/08/20 11/08/20 Range/Units 03:21 03:21 03:21 WBC 13.17 H (4.8-10.8) K/uL RBC 4.74 (4.7-6.1) M/uL Hgb 14.9 (14.0-18.0) g/dL Hct 42.8 (42-52) % MCV 90.3 (80-100) fL MCH 31.4 (25-34) pg MCHC 34.8 (32-36) g/dL RDW Std Deviation 45.8 (36.4-46.3) fL RDW Coeff of Norma 14.1 (11.5-14.5) % Plt Count 254 (130-400) K/uL MPV 9.6 (7.4-10.4) fL Immature Gran % (Auto) 0.3 % Neut % (Auto) 80.5 % Lymph % (Auto) 7.9 % [place] % (Auto) 5.5 % Eos % (Auto) 5.7 % Baso % (Auto) 0.1 % Neut # (Auto) 10.60 H (1.4-6.5) K/uL Lymph # (Auto) 1.04 L (1.2-3.4) K/uL [place] # (Auto) 0.73 H (0.11-0.59) K/uL Eos # (Auto) 0.75 H (0-0.5) K/uL Baso # (Auto) 0.01 (0-0.2) K/uL Immature Gran # (Auto) 0.04 H (0.00-0.02) K/uL APTT (21.0-31.0) Seconds PTT Ratio ABG pH (7.35-7.45) ABG pCO2 (35-46) mmHg ABG pO2 (80-95) mmHg ABG HCO3 (19-24) mmol/L ABG O2 Saturation (90-95) % ABG Base Excess (-9-1.8) mEq/L Shahbaz Test (Pos) Barometric Pressure mm/Hg Oxygen Given Sodium 141 (136-145) mmol/L Potassium 3.7 (3.5-5.1) mmol/L Chloride 108 H (98-107) mmol/L Carbon Dioxide 26 (21-32) mmol/L Anion Gap 7.0 (3-11) BUN 16 (7-18) mg/dl Creatinine 1.24 (0.6-1.4) mg/dl Est Cr Clr Drug Dosing 53.7 ml/min Est GFR ( Amer) 63.7 Est GFR (Non-Af Amer) 54.9 BUN/Creatinine Ratio 12.6 (10-20) Glucose 195 H (70-99) mg/dl Estimat Average Glucose mg/dl Hemoglobin A1c (4.5-5.6) % Lactate (0.4-2.0) mmol/L Calcium 8.4 L (8.5-10.1) mg/dl Magnesium 2.0 (1.8-2.4) mg/dl Total Bilirubin 0.5 (0.2-1) mg/dl AST 24 (15-37) U/L ALT 33 (12-78) U/L Alkaline Phosphatase 151 H (45-117) U/L Troponin I 0.020 (0-0.045) ng/ml NT-Pro-B Natriuret Pep 94 (0-1800) pg/ml Total Protein 6.4 (6.4-8.2) gm/dl Albumin 3.2 L (3.4-5.0) gm/dl Globulin 3.2 (2.5-4.0) gm/dl Albumin/Globulin Ratio 1.0 (0.9-2) Procalcitonin 0.14 (0-0.5) ng/ml COVID-19 Eval Order SARS-CoV-2 (PCR) (Negative) Influenza Type A (PCR) (Neg) Influenza Type B (PCR) (Neg) RSV (RT-PCR) (Neg) Blood Type Antibody Screen 11/08/20 11/08/20 11/08/20 Range/Units 03:25 03:25 03:26 WBC (4.8-10.8) K/uL RBC (4.7-6.1) M/uL Hgb (14.0-18.0) g/dL Hct (42-52) % MCV (80-100) fL MCH (25-34) pg MCHC (32-36) g/dL RDW Std Deviation (36.4-46.3) fL RDW Coeff of Norma (11.5-14.5) % Plt Count (130-400) K/uL MPV (7.4-10.4) fL Immature Gran % (Auto) % Neut % (Auto) % Lymph % (Auto) % [place] % (Auto) % Eos % (Auto) % Baso % (Auto) % Neut # (Auto) (1.4-6.5) K/uL Lymph # (Auto) (1.2-3.4) K/uL [place] # (Auto) (0.11-0.59) K/uL Eos # (Auto) (0-0.5) K/uL Baso # (Auto) (0-0.2) K/uL Immature Gran # (Auto) (0.00-0.02) K/uL APTT 23.9 (21.0-31.0) Seconds PTT Ratio 0.9 ABG pH (7.35-7.45) ABG pCO2 (35-46) mmHg ABG pO2 (80-95) mmHg ABG HCO3 (19-24) mmol/L ABG O2 Saturation (90-95) % ABG Base Excess (-9-1.8) mEq/L Shahbaz Test (Pos) Barometric Pressure mm/Hg Oxygen Given Sodium (136-145) mmol/L Potassium (3.5-5.1) mmol/L Chloride (98-107) mmol/L Carbon Dioxide (21-32) mmol/L Anion Gap (3-11) BUN (7-18) mg/dl Creatinine (0.6-1.4) mg/dl Est Cr Clr Drug Dosing ml/min Est GFR ( Amer) Est GFR (Non-Af Amer) BUN/Creatinine Ratio (10-20) Glucose (70-99) mg/dl Estimat Average Glucose mg/dl Hemoglobin A1c (4.5-5.6) % Lactate (0.4-2.0) mmol/L Calcium (8.5-10.1) mg/dl Magnesium (1.8-2.4) mg/dl Total Bilirubin (0.2-1) mg/dl AST (15-37) U/L ALT (12-78) U/L Alkaline Phosphatase (45-117) U/L Troponin I (0-0.045) ng/ml NT-Pro-B Natriuret Pep (0-1800) pg/ml Total Protein (6.4-8.2) gm/dl Albumin (3.4-5.0) gm/dl Globulin (2.5-4.0) gm/dl Albumin/Globulin Ratio (0.9-2) Procalcitonin (0-0.5) ng/ml COVID-19 Eval Order [facility]Rsv at [facility] SARS-CoV-2 (PCR) POSITIVE A* (Negative) Influenza Type A (PCR) Negative (Neg) Influenza Type B (PCR) Negative (Neg) RSV (RT-PCR) Negative (Neg) Blood Type Antibody Screen 11/08/20 11/08/20 11/08/20 Range/Units 03:33 06:15 06:15 WBC (4.8-10.8) K/uL RBC (4.7-6.1) M/uL Hgb (14.0-18.0) g/dL Hct (42-52) % MCV (80-100) fL MCH (25-34) pg MCHC (32-36) g/dL RDW Std Deviation (36.4-46.3) fL RDW Coeff of Norma (11.5-14.5) % Plt Count (130-400) K/uL MPV (7.4-10.4) fL Immature Gran % (Auto) % Neut % (Auto) % Lymph % (Auto) % [place] % (Auto) % Eos % (Auto) % Baso % (Auto) % Neut # (Auto) (1.4-6.5) K/uL Lymph # (Auto) (1.2-3.4) K/uL [place] # (Auto) (0.11-0.59) K/uL Eos # (Auto) (0-0.5) K/uL Baso # (Auto) (0-0.2) K/uL Immature Gran # (Auto) (0.00-0.02) K/uL APTT (21.0-31.0) Seconds PTT Ratio ABG pH 7.46 H (7.35-7.45) ABG pCO2 33 L (35-46) mmHg ABG pO2 55 L (80-95) mmHg ABG HCO3 23 (19-24) mmol/L ABG O2 Saturation 91.6 (90-95) % ABG Base Excess 0.1 (-9-1.8) mEq/L Shahbaz Test Pos (Pos) Barometric Pressure 733.0 mm/Hg Oxygen Given 2L Sodium (136-145) mmol/L Potassium (3.5-5.1) mmol/L Chloride (98-107) mmol/L Carbon Dioxide (21-32) mmol/L Anion Gap (3-11) BUN (7-18) mg/dl Creatinine (0.6-1.4) mg/dl Est Cr Clr Drug Dosing ml/min Est GFR ( Amer) Est GFR (Non-Af Amer) BUN/Creatinine Ratio (10-20) Glucose (70-99) mg/dl Estimat Average Glucose 192 mg/dl Hemoglobin A1c 8.3 H (4.5-5.6) % Lactate (0.4-2.0) mmol/L Calcium (8.5-10.1) mg/dl Magnesium (1.8-2.4) mg/dl Total Bilirubin (0.2-1) mg/dl AST (15-37) U/L ALT (12-78) U/L Alkaline Phosphatase (45-117) U/L Troponin I (0-0.045) ng/ml NT-Pro-B Natriuret Pep (0-1800) pg/ml Total Protein (6.4-8.2) gm/dl Albumin (3.4-5.0) gm/dl Globulin (2.5-4.0) gm/dl Albumin/Globulin Ratio (0.9-2) Procalcitonin (0-0.5) ng/ml COVID-19 Eval Order SARS-CoV-2 (PCR) (Negative) Influenza Type A (PCR) (Neg) Influenza Type B (PCR) (Neg) RSV (RT-PCR) (Neg) Blood Type A Positive Antibody Screen NEGATIVE 11/08/20 Range/Units 06:16 WBC (4.8-10.8) K/uL RBC (4.7-6.1) M/uL Hgb (14.0-18.0) g/dL Hct (42-52) % MCV (80-100) fL MCH (25-34) pg MCHC (32-36) g/dL RDW Std Deviation (36.4-46.3) fL RDW Coeff of Norma (11.5-14.5) % Plt Count (130-400) K/uL MPV (7.4-10.4) fL Immature Gran % (Auto) % Neut % (Auto) % Lymph % (Auto) % [place] % (Auto) % Eos % (Auto) % Baso % (Auto) % Neut # (Auto) (1.4-6.5) K/uL Lymph # (Auto) (1.2-3.4) K/uL [place] # (Auto) (0.11-0.59) K/uL Eos # (Auto) (0-0.5) K/uL Baso # (Auto) (0-0.2) K/uL Immature Gran # (Auto) (0.00-0.02) K/uL APTT (21.0-31.0) Seconds PTT Ratio ABG pH (7.35-7.45) ABG pCO2 (35-46) mmHg ABG pO2 (80-95) mmHg ABG HCO3 (19-24) mmol/L ABG O2 Saturation (90-95) % ABG Base Excess (-9-1.8) mEq/L Shahbaz Test (Pos) Barometric Pressure mm/Hg Oxygen Given Sodium (136-145) mmol/L Potassium (3.5-5.1) mmol/L Chloride (98-107) mmol/L Carbon Dioxide (21-32) mmol/L Anion Gap (3-11) BUN (7-18) mg/dl Creatinine (0.6-1.4) mg/dl Est Cr Clr Drug Dosing ml/min Est GFR ( Amer) Est GFR (Non-Af Amer) BUN/Creatinine Ratio (10-20) Glucose (70-99) mg/dl Estimat Average Glucose mg/dl Hemoglobin A1c (4.5-5.6) % Lactate 1.5 (0.4-2.0) mmol/L Calcium (8.5-10.1) mg/dl Magnesium (1.8-2.4) mg/dl Total Bilirubin (0.2-1) mg/dl AST (15-37) U/L ALT (12-78) U/L Alkaline Phosphatase (45-117) U/L Troponin I (0-0.045) ng/ml NT-Pro-B Natriuret Pep (0-1800) pg/ml Total Protein (6.4-8.2) gm/dl Albumin (3.4-5.0) gm/dl Globulin (2.5-4.0) gm/dl Albumin/Globulin Ratio (0.9-2) Procalcitonin (0-0.5) ng/ml COVID-19 Eval Order SARS-CoV-2 (PCR) (Negative) Influenza Type A (PCR) (Neg) Influenza Type B (PCR) (Neg) RSV (RT-PCR) (Neg) Blood Type Antibody Screen Imaging Data Radiologist's Impression: XR chest 1V portable CLINICAL HISTORY: Shortness of breath COMPARISON STUDY: 07/19/2019 FINDINGS: The cardiac and mediastinal contours are normal. There is no evidence of focal pulmonary consolidation. There is no evidence of failure. No pleural effusions are visualized.[ IMPRESSION: No active disease in the chest. ECG Data Attestation: I personally reviewed and interpreted this ECG as follows: Indication: + SOB/dyspnea Additional Comments: Sinus tachycardia @109 bpm Left bundle branch block Abnormal ECG When compared with ECG of 19-JUL-2019 11:04, No significant change was found MDM Narrative Physical exam and history were performed. Nursing notes, EMR, and Medication List were personally reviewed. Patient appears to have progressive shortness of breath symptoms over the past several days that seem to be acutely exacerbated tonight. The patient was in the mid 80s with his O2 saturation at the time of EMS arrival to his home. His oxygen saturation has improved on 3 L nasal cannula. IV access was established and labs were obtained. Chest x-ray was performed. EKG is as above without acute ST elevation. An order was placed for continuous cardiac monitoring. The monitor shows a rate of 76 with normal sinus rhythm. The patient's blood work is as above and was reviewed. He does have a minimally elevated white blood cell count of 13,000. He does not have a significant anemia or gross electrolyte imbalance. ABG was performed and his PO2 is 55. Lipase and transaminases are not diagnostic. Troponin x1 is negative. Chest x- ray was reviewed by myself and radiology showing no acute process. The patient's COVID-19 test is POSITIVE. The case was discussed with my attending physician, Dr. Ohara, who remained involved in care and decision-making. We agree that the patient is not stable for discharge home. [facility] here in the ER. Please see their dictation for further patient course, plan, and disposition. The chart was completed utilizing [employer] Speech Voice Recognition Software. Grammatical errors, random word insertions, pronoun errors, and incomplete sentences are an occasional consequence of this system due to software limitations, ambient noise, and hardware issues. Any formal questions or concerns about the content, text, or information contained within the body of this dictation should be directly addressed to the provider for clarification. . Impression & Plan Acute hypoxemic respiratory failure, COVID-19, Shortness of breath Discharge Plan Visit Data Chief Complaint: Respiratory Problems Stated Complaint: RESPIRATORY DIFFICULTY ED Provider: Tonia Ohara ED Midlevel Provider: Arthur Ospina Discharge Problem: Acute hypoxemic respiratory failure, COVID-19, Shortness of breath Patient Disposition: Admitted As Inpatient Discharge Instructions Interventions: ED Discharge Assessment Last Done: 11/08/20 07:43
[2020-11-09 07:33] LABS: Basophils # (auto) 0.03 K/uL (0-0.2); Basophils % (auto) 0.2 %; Eosinophils # (auto) 1.31 K/uL (0-0.5); Eosinophils % (auto) 8.4 %; Hematocrit (blood only) 40.4 % (42-52); Hemoglobin 13.8 g/dL (14.0-18.0); Immature Granulocytes # (auto) 0.08 K/uL (0.00-0.02); Immature Granulocytes % (auto) 0.5 %; Lymphocytes # (auto) 2.52 K/uL (1.2-3.4); Lymphocytes % (auto) 16.2 %; Mean Corpuscular Hemoglobin 30.6 pg (25-34); Mean Corpuscular Hgb Conc 34.2 g/dL (32-36); Mean Corpuscular Volume 89.6 fL (80-100); Mean Platelet Volume 9.8 fL (7.4-10.4); Monocytes # (auto) 1.18 K/uL (0.11-0.59); Monocytes % (auto) 7.6 %; Neutrophils # (auto) 10.47 K/uL (1.4-6.5); Neutrophils % (auto) 67.1 %; Platelet Count 266 K/uL (130-400); RDW Coefficient of Variation 14.4 % (11.5-14.5); RDW Standard Deviation 45.8 fL (36.4-46.3); Red Blood Count 4.51 M/uL (4.7-6.1); White Blood Count 15.59 K/uL (4.8-10.8)
[2020-11-09] MEDS: LEVALBUTEROL TARTRATE 15 GM HFA.AER.AD INH SCH (07:34)
[2020-11-09 08:00] LABS: Albumin Level 2.8 gm/dl (3.4-5.0); BUN Creatinine Ratio 16.6 (10-20); C Reactive Protein 2.36 mg/dl (0-0.29); Calcium 8.7 mg/dl (8.5-10.1); Creatinine Clr Calc Pharmacy 62.8 ml/min; Est GFR (Non-African American) 66.4
[2020-11-09 08:05] LABS: Albumin Globulin Ratio 0.8 (0.9-2); Bilirubin,Total 0.5 mg/dl (0.2-1); Ferritin 329.6 ng/ml (8-388); Globulin 3.3 gm/dl (2.5-4.0); Total Protein 6.1 gm/dl (6.4-8.2)
[2020-11-09] MEDS: ENOXAPARIN INJ 40 MG/0.4 ML SYR SQ SCH (08:19)
--- NOTE | 2020-11-09 08:46 | Pharmacy Report ---
Pharmacy Glycemic Short Note 2 - Date of Service November 09, 2020 - Glycemic Short BSG Results (Last 24 hours): 11/08/20 11/08/20 11/08/20 09:19 09:20 11:52 Glucose POC Glucose 304 H* 306 H* 240 H 11/08/20 11/08/20 11/08/20 16:47 21:15 23:48 Glucose POC Glucose 198 H 146 H 152 H 11/09/20 11/09/20 11/09/20 03:35 06:59 07:46 Glucose 138 H POC Glucose 148 H 144 H OUTPATIENT ANTIDIABETIC REGIMEN: * N/A * A1c = 8.3% on 11/08/20 ASSESSMENT: 11/09/20: * BSGs much improved throughout the day yesterday, 306, 240, 198, 146, and 152 mg/dL * Patient received 74 units of insulin (39 units of basal and 35 units of prandial/correctional) * Fasting BSG of 144 mg/dL this morning * Continues on dexamethasone 6 mg IV daily - will cover with 39 units of Lantus (0.4 unit/kg) 11/08/20: * 80yo male with no prior history of diabetes - no antidiabetic agents as an outpatient. A1c today is diagnostic for diabetes as A1c > 6.5% * Goal A1c is likely 8% based on age/comorbidities * Pt initiated on high dose IV steroids with dexamethasone 6mg IV daily for COVID PNA. * Baseline insulin resistance plus steroids resulted in severe hyperglycemia * Will start with high stress weight based dosing of insulin and titrate based on BSG trends. * Would usually use NPH to cover once daily DXM; however Lantus already ordered on admission. Hesitant to use 3 insulins (Lantus + NPH + NovoLog) in an insulin niave patient. Do not want to cause hypo and then an aversion to insulin. Therefore, will start with Lantus + NovoLog and add NPH if needed. * Will start with 0.4 units/kg Lantus (this is the NPH dosing that would be used for DXM) and titrate based on BSGs * Weight/stress of 3 NovoLog q4hrs. PLAN FOR INPATIENT GLYCEMIC CONTROL: * Basal insulin - continue * Lantus 39 units (0.4 units/kg) SQ daily with DXM - dose will need adjusted downwards if dexamethsone held/dc * Bolus insulin - continue * NovoLog per scale ACHS or Q6hrs while NPO * Goal Range: Low 120 mg/dL - High 160 mg/dL * Correction Factor: 15 mg/dL/unit * Nutritional / Prandial insulin per carb ratio of 1 unit per 6 grams CHO consumed PLAN FOR DISCHARGE: * A1c = 8.3% on 11/08/20 * Goal A1c = 8 % based on age and comorbidities * Metformin should be started at the time type 2 diabetes is diagnosed unless there are contraindications. Metformin is effective and safe, is inexpensive, and may reduce risk of cardiovascular events and . * B12 supplementation may be necessary with termite treater helper metformin use * FDA has revised the label for metformin to reflect its safety in patients with eGFR 30 mL/min or above * Recommend starting: Metformin XR 500mg PO daily with evening meal. Typically the XR formulation of metformin is better tolerated than the immediate release formulation. Continue to titrate metformin dosing upwards as recommended. Dosage increases should be made in increments of 500 mg weekly, up to 2,000 mg/day PO, given in divided doses. Doses above 2000 mg/day may be better tolerated if divided and given 3 times per day with meals. Max: 2,550 mg/day PO, in divided doses * Support Patient Self-Management * Healthy Lifestyle (diet, exercise, and smoking cessation) * Disease self-management (SMBG) * Prevention of complications (BP, Lipid goals, Immunizations) * Consider outpatient Diabetes Self-Management Education & Support * These recommendations may change if patient is dc on steroid course or renal function declines.
[2020-11-09] MEDS ORDERED: dexAMETHasone 6 MG in SYRINGE 0 ML IV SCH (09:00)
[2020-11-09] MEDS ORDERED: dexAMETHasone 6 MG in DEXTROSE 5% 25 ML IV SCH (09:00)
[2020-11-09] MEDS ORDERED: INSULIN GLARGINE SOLOSTAR 100 UNITS/ML 3 ML PEN SC SCH (09:00)
[2020-11-09] MEDS ORDERED: REMDESIVIR 100 MG in SODIUM CHLORIDE 0.9% 230 ML IV SCH (12:00)
[2020-11-09] MEDS: SODIUM CHLORIDE 0.9% 10ML FLUSH IV SCH (14:03)
--- NOTE | 2020-11-09 16:42 | Hospitalist Progress Note ---
Date of Service November 09, 2020 Assessment & Plan (1) Acute hypoxemic respiratory failure: Secondary to COVID-19 CXR showed no infiltrate CTA chest showed no pulmonary emboli. Bronchial wall thickening suggestive of bronchitis or reactive airway disease with bibasilar mucous plugging and mild bibasilar atelectasis.No pleural effusion or airspace consolidation to suggest pneumonia. On Dexamethasone and Remdesevir, will discontinue on discharge Currently saturated well on RA Will hold on convalescent plasma since pt saturated 94% and above on RA ESR, ferritin, LDH and procalcitonin are normal CRP elevated at 2.36 Continue respiratory treatment with flutter valve and incentive spirometry PRN Clinically stable very anxious to go home, will discharge home Bronchitis CTA chest showed Bronchial wall thickening suggestive of bronchitis or reactive airway disease with bibasilar mucous plugging and mild bibasilar atelectasis Will complete 5 days course Continue flutter valve and incentive spirometry as needed Lung Nodule CTA chest showed 5 total bilateral groundglass nodules measure up to 8 mm within the right upper lobe. Follow-up guidelines provided below. Follow-up CT of the chest is recommended in 6 months. Diabetes type 2 Most recent Hab1c 8.3 (11/08) Not on any diabetes medication On Lantus and novolog sliding scale during hospital course Pharmacy on board for glycemic management recommended Metformin XR 500mg PO daily with evening meal. Metfromin can be titrate by 500mg weekly if able to tolerate Check HBA1C in 3 months Follow up a healthy diabetes diet and limited concentrated sweet intake HTN BP stable Continue Lisinopril BP stable DVT px on Lovenox Code status Full code Disposition Discharge home today Admission and Anticipated Discharge Date Admission Date: November 08, 2020 Subjective Pt was seen and examined for follow up of covid 19 Sitting in chair with no distress watching golf on the TV He said that he feels fine He said that he has not been coughing He has been on RA since yesterday morning He is very anxious to go home Denies any chest pain, palpitation, dizziness and SOB Physical Exam Physical Exam: General- No acute distress Head- atraumatic Eyes- PERRL, EOMI, ENT- oropharynx clear Neck- supple, no JVD Lungs- clear to auscultation Heart- regular rhythm; no murmur Abdomen- normal bowel sounds, soft, nontender Extremities- no calf tenderness, +trace edema Neuro- alert, oriented x 3; PERRL, EOMI; no facial palsy; no dysarthria Skin- warm & dry Results & Data Results & Data ([facility]) Vital Signs (Past 12 Hours) Vital Signs Temp Pulse Resp BP Pulse Ox 11/09/20 08:06 36.6 C 66 18 116/66 95 11/09/20 07:35 82 18 93
--- NOTE | 2020-11-09 17:53 | Discharge Summary ---
Date of Service November 09, 2020 Admission HPI Per Admitting Provider History obtained from patient and records. Medical history significant for hypertension, hyperlipidemia, chronic left bundle branch block, BPH, kidney stones, NAFLD as per records, possible prediabetes as per patient, past tobacco abuse. Last confinement 2012 for gallstone pancreatitis status post laparoscopic cholecystectomy. Patient had the second dose of his COVID-19 vaccine about 10 days ago. Few days history of nasal congestion, cough productive of clear sputum. Increasing shortness of breath without chest pain. No fluid retention. Ankle swelling from not moving a lot as per patient. No known recent COVID-19 contacts. O2 sats noted to be 80s upon arrival of EMS at home. Patient given neb treatment en route to the hospital. MEDICAL HISTORY: As above. SURGICAL HISTORY: Lithotripsy. Cleft lip and cleft palate surgery. Cholecystectomy FAMILY HISTORY: Melanoma. PERSONAL/SOCIAL HISTORY: Remote tobacco abuse. Denies chronic intake alcohol. Retired from sales work, prior work as an EMT. Admission Exam Per Admitting Provider GENERAL: Comfortable, no respiratory distress, obese, pleasant SKIN: Normal color, warm HEENT: [place] palpebral conjunctivae, no ptosis, moist buccal mucosa, nasal cannula in place NECK : Supple, short neck, no tenderness CHEST : Decreased breath sounds, occasional expiratory wheezes, no tenderness HEART : Tachycardic , no obvious murmurs ABDOMEN: Some distention, nontender EXTREMITIES : Minimal LE swelling, no LE tenderness, no other conspicuous deformities noted NEUROLOGIC : Coherent, no facial asymmetry, no other gross focality Principal Diagnosis Acute hypoxemic respiratory failure: COVID-19 Bronchitis Lung Nodule Diabetes type 2 Hypertension Discharge Exam General- No acute distress Head- atraumatic Eyes- PERRL, EOMI, ENT- oropharynx clear Neck- supple, no JVD Lungs- clear to auscultation Heart- regular rhythm; no murmur Abdomen- normal bowel sounds, soft, nontender Extremities- no calf tenderness, +trace edema Neuro- alert, oriented x 3; PERRL, EOMI; no facial palsy; no dysarthria Skin- warm & dry Discharge Data Allergies Allergy/AdvReac Type Severity Reaction Status Date / Time No Known Allergies Allergy Unknown Verified 11/08/20 03:57 Consultations 11/08/20 05:39 ED Decision to Admit Stat Ordered Studies 11/08/20 10:49 CT angio chest PE protocol Routine CT angio chest PE protocol CT DOSE: 539.68 mGy.cm HISTORY: 80 years-old Male with PE. Acute shortness of breath TECHNIQUE: Multiple CTA images of the chest were obtained after the intravenous administration of Optiray 320. Coronal and sagittal MIPS were obtained from the axial data set and were submitted for review. All measurements were obtained according to NASCET criteria. A dose lowering technique was utilized adhering to the principles of ALARA. COMPARISON: Chest radiograph of same day FINDINGS: CTA: The heart is normal in size. There is no pericardial effusion. Extensive coronary artery calcifications. Atheromatous plaque of the thoracic aorta without aneurysm or dissection. Mixed plaque at the origin of the right subclavian artery is noted resulting in less than 50% luminal narrowing. Pulmonary artery is opacified to the level of the segmental branches and demonstrates no filling defects to suggest thromboembolic disease. CT CHEST: Diminutive thyroid. There are numerous prominent nonenlarged mediastinal and hilar lymph nodes present which measure up to 8-9 mm. No pathologically enlarged lymph nodes by CT size criteria. There is no pneumothorax or pleural effusion. Mild subsegmental bibasilar atelectasis. Bronchial wall thickening with bibasilar mucous plugging. 6 mm groundglass nodule of the apical segment right upper lobe, image 239 series 4. 8 mm groundglass nodule of the anterior segment right upper lobe on image 182. 4 mm groundglass nodule of the right lower lobe on image 94. 5 mm groundglass nodule of the superior segment left lower lobe on image 209. 7 mm groundglass nodule of the left lower lobe on image 133. There are a few scattered low suspicion solid pulmonary nodules noted bilaterally measuring up to 4 mm within the right lung apex. 5 mm fissural nodule of the left midlung is suggestive of a benign lymph node. Mild nonspecific distal esophageal wall thickening. Hepatic steatosis. Unremarkable soft tissues. Degenerative changes of the spine and shoulders. IMPRESSION: 1. No pulmonary emboli. 2. Bronchial wall thickening suggestive of bronchitis or reactive airway disease with bibasilar mucous plugging and mild bibasilar atelectasis. 3. No pleural effusion or airspace consolidation to suggest pneumonia. 4. 5 total bilateral groundglass nodules measure up to 8 mm within the right upper lobe. Follow-up guidelines provided below. Follow-up CT of the chest is recommended in 6 months. 5. There are a few solid nodules of the lungs measuring up to 4 mm which are of low clinical suspicion. Please refer to below summary of Fleischner criteria recommendations for follow- up of incidental CT nodules (Mary Beth Kennedy, Guidelines for management of small pulmonary nodules detected on CT scans: A statement from the Fleischner Society, Radiology 237: [id number].) SOLID NODULES Multiple nodules size: <6 mm * Low risk patients: no routine follow-up * high risk patients: optional CT at 12 months Note: newly detected indeterminate nodule in persons 35 years of age or older. * Low risk patients: minimal or absent history of smoking and/or other known risk factors * high risk patients: history of smoking or of other known risk factors (e.g. first degree relative with lung cancer, or exposure to asbestos, radon, uranium) * if a nodule up to 8 mm is partly solid or is ground glass further follow-up is required after 24 months to exclude possible slow growing adenocarcinoma (SERA) SUBSOLID NODULES Multiple subsolid nodules * nodule size <6 mm - follow-up CT at 3-6 months, consider further follow-up at 2 and 4 years if stable * nodule size >=6 mm - follow-up CT at 3-6 months, subsequent management based on the most suspicious nodule(s) ACT 112: Negative or not required by law. The above report was generated using voice recognition software. It may contain grammatical, syntax or spelling errors. Electronically signed by: Leonel Argueta M.D. 11/08/2020 12:51 PM Dictated: 11/08/20 1240Transcribed: 11/08/20 1240 XR chest 1V portable CLINICAL HISTORY: Shortness of breath COMPARISON STUDY: 07/19/2019 FINDINGS: The cardiac and mediastinal contours are normal. There is no evidence of focal pulmonary consolidation. There is no evidence of failure. No pleural effusions are visualized.[ IMPRESSION: No active disease in the chest. ACT 112: Negative or not required by law. Electronically signed by: Price Fiore M.D. 11/08/2020 7:01 AM Dictated: 11/08/20 0701Transcribed: 11/08/20 0701 Hospital Course (1) Acute hypoxemic respiratory failure: Secondary to COVID-19 CXR showed no infiltrate CTA chest showed no pulmonary emboli. Bronchial wall thickening suggestive of bronchitis or reactive airway disease with bibasilar mucous plugging and mild bibasilar atelectasis.No pleural effusion or airspace consolidation to suggest pneumonia. On Dexamethasone and Remdesevir, will discontinue on discharge Currently saturated well on RA Will hold on convalescent plasma since pt saturated 94% and above on RA ESR, ferritin, LDH and procalcitonin are normal CRP elevated at 2.36 Continue respiratory treatment with flutter valve and incentive spirometry PRN Clinically stable very anxious to go home, will discharge home Bronchitis CTA chest showed Bronchial wall thickening suggestive of bronchitis or reactive airway disease with bibasilar mucous plugging and mild bibasilar atelectasis Will complete 5 days course Continue flutter valve and incentive spirometry as needed Lung Nodule CTA chest showed 5 total bilateral groundglass nodules measure up to 8 mm within the right upper lobe. Follow-up guidelines provided below. Follow-up CT of the chest is recommended in 6 months. Diabetes type 2 Most recent Hab1c 8.3 (11/08) Not on any diabetes medication On Lantus and novolog sliding scale during hospital course Pharmacy on board for glycemic management recommended Metformin XR 500mg PO daily with evening meal. Metfromin can be titrate by 500mg weekly if able to tolerate Check HBA1C in 3 months Follow up a healthy diabetes diet and limited concentrated sweet intake HTN BP stable Continue Lisinopril BP stable DVT px on Lovenox Code status Full code Disposition Discharge home today Total Time Total Time Spent Total Time Spent (In Minutes): 35 minutes Total Time Includes: Examination of the Patient, Discharge Planning, Medication Reconciliation, Communication With Other Providers and Other Discharge Plan Discharge Items Patient Disposition: Home - Self-Care Reason For Visit: RESP FAILURE,SEVERE COVID Discharge Diagnosis: Acute hypoxemic respiratory failure: COVID-19 Bronchitis Lung Nodule Diabetes type 2 Hypertension Activity: Resume your previous activity Non-emergency contact: Primary Care Provider Call non-emergency contact if: you have any medication questions and your temperature is above 101 Follow-up/Referrals: Tony Dupree MD [Primary Care Provider] - (Date & Time 11/12/2020 11:20 Barbara Dupree [facility] Internal Medicine [facility] PLEASE NOTE THAT THIS IS A TELEPHONE APPOINTMENT. YOUR PHYSICIAN WILL CALL YOU AT THE APPOINTMENT TIME. IF YOU HAVE ANY QUESTIONS REGARDING YOUR APPOINTMENT, PLEASE CALL ) Diet: Carb Consistent or DM2 Addtl Attending Provider Instructions: Follow up with your primary care provider Dr. Dupree on 11/12/2020 at 11:20 AM (PLEASE NOTE THAT THIS IS A TELEPHONE APPOINTMENT) Newly diagnosed diabetes. You need to follow a healthy diabetes diet by limiting concentrated sweet intake Since your are recently diagnosed with diabetes, please follow up with your eyes doctor to schedule a routine eye exam Counseling on weight loss Take Metformin XR 500mg PO daily with evening meal for the diabetes (Please start the metformin on Thursday due to contrast given during the admission) your provider will check your HbA1c in 3 months to manage your diabetes You will need to get a repeat CT chest in 6 months to monitor for the lung nodule ( Your provider will order it) Continue incentive spirometry and flutter valve as needed for the mucus plug Complete the course of Doxycycline for the bronchitis Continue to wear mask Continue isolation for 10 days for the day of first symptoms ( or tested positive) Seek medical attention if you develop any symptoms such as fever and shortness of breath, ... Home Isolation COVID-19 Instructions The following information about Home Isolation is from the CDC Website: https://www.cdc.gov/coronavirus/2019-ncov/hcp/bexkdzsa-jliyxlm-lsxvxz.html Stay home except to get medical care People who are mildly ill with COVID-19 are able to isolate at home during their illness. You should restrict activities outside your home, except for getting medical care. Do not go to work, school, or public areas. Avoid using public transportation, ride-sharing, or taxis. Separate yourself from other people and animals in your home People: As much as possible, you should stay in a specific room and away from other people in your home. Also, you should use a separate bathroom, if available. Animals: You should restrict contact with pets and other animals while you are sick with COVID-19, just like you would around other people. Although there have not been reports of pets or other animals becoming sick with COVID-19, it is still recommended that people sick with COVID-19 limit contact with animals until more information is known about the virus. When possible, have another member of your household care for your animals while you are sick. If you are sick with COVID-19, avoid contact with your pet, including petting, snuggling, being kissed or licked, and sharing food. If you must care for your pet or be around animals while you are sick, wash your hands before and after you interact with pets and wear a face mask. Call ahead before visiting your doctor If you have a medical appointment, call the healthcare provider and tell them that you have or may have COVID-19. This will help the healthcare providers office take steps to keep other people from getting infected or exposed. Wear a face mask You should wear a face mask when you are around other people (e.g., sharing a room or vehicle) or pets and before you enter a healthcare providers office. If you are not able to wear a face mask (for example, because it causes trouble breathing), then people who live with you should not stay in the same room with you, or they should wear a face mask if they enter your room. Cover your coughs and sneezes Cover your mouth and nose with a tissue when you cough or sneeze. Throw used tissues in a lined trash can. Immediately wash your hands with soap and water for at least 20 seconds or, if soap and water are not available, clean your hands with an alcohol-based hand locomotive operator helper that contains at least 60% alcohol. Clean your hands often Wash your hands often with soap and water for at least 20 seconds, especially after blowing your nose, coughing, or sneezing; going to the bathroom; and before eating or preparing food. If soap and water are not readily available, use an alcohol-based hand locomotive operator helper with at least 60% alcohol, covering all surfaces of your hands and rubbing them together until they feel dry. Soap and water are the best option if hands are visibly dirty. Avoid touching your eyes, nose, and mouth with unwashed hands. Avoid sharing personal household items You should not share dishes, drinking glasses, cups, eating utensils, towels, or bedding with other people or pets in your home. After using these items, they should be washed thoroughly with soap and water. Clean all high-touch surfaces everyday High touch surfaces include counters, tabletops, doorknobs, bathroom fixtures, toilets, phones, keyboards, tablets, and bedside tables. Also, clean any surfaces that may have blood, stool, or body fluids on them. Use a household cleaning spray or wipe, according to the label instructions. Labels contain instructions for safe and effective use of the cleaning product including precautions you should take when applying the product, such as wearing gloves and making sure you have good ventilation during use of the product. Monitor your symptoms Seek prompt medical attention if your illness is worsening (e.g., difficulty breathing).Beforeseeking care, call your healthcare provider and tell them that you have, or are being evaluated for, COVID-19. Put on a face mask before you enter the facility. These steps will help the healthcare providers office to keep other people in the office or waiting room from getting infected or exposed. Ask your healthcare provider to call the local or state health department. Persons who are placed under active monitoring or facilitated self- monitoring should follow instructions provided by their local health department or occupational health professionals, as appropriate. When working with your local health department check their available hours. If you have a medical emergency and need to call 911, notify the dispatch personnel that you have, or are being evaluated for COVID-19. If possible, put on a face mask before emergency medical services arrive. Discontinuing home isolation Patients with confirmed COVID-19 should remain under home isolation precautions until the risk of secondary transmission to others is thought to be low. The decision to discontinue home isolation precautions should be made on a [id number] basis, in consultation with healthcare providers and state and local health departments. Coronavirus disease 2019 (COVID-19) is a virus that causes a respiratory illness. It is caused by a coronavirus called 2019 novel coronavirus (2019- nCoV). There are many types of coronavirus. Coronaviruses are a very common cause of bronchitis. They may sometimes cause lung infection(pneumonia). Symptoms can range from mild to severe respiratory illness. These viruses are also foundin some animals. COVID-19 was first found in people in [facility], in late 2019. In 2020, several cases of COVID-19 have been confirmed in the [place] Public health officials are working to find the source. How the virus spreads is not yet fully known. It may be spread through droplets of fluid that a person coughs or sneezes into the air. It may be spread if you touch a surface with virus on it, such as a handle or object, and then touch your mouth. What are the symptoms of COVID-19? Some people have no symptoms or mild symptoms. Symptoms may appear 2 to 14 days after contact with the virus. Symptoms can include: Fever Coughing Trouble breathing What are possible complications from COVID-19? In many cases, this virus can cause infection (pneumonia) in both lungs. In some cases, this can cause . How is COVID-19 diagnosed? Your healthcare provider will ask about your symptoms. He or she will also ask about your recent travel and contact with sick people. Testing for the virus is only done through the CDC. If yourhealthcare provider thinks you may have COVID- 19, he or she will work with your local health department and the CDC on testing. Follow all instructions from your healthcare provider. COVID-19 is diagnosed by: Nasal and throat swab. A cotton-tipped swab is wiped inside your nose or throat. This is done to check for viruses in your nasal mucus. Sputum culture. A small sample of mucus coughed from your lungs (sputum) is collected if you have a cough. It is checked for the virus. How is COVID-19 treated? There is currently no medicine to treat the virus. Treatment is done to help your body while it fights the virus. This is known as supportive care. Supportive care may include: Pain medicine. These include acetaminophen and ibuprofen. They are used to help ease pain and reduce fever. Bed rest. This helps your body fight the illness. For severe illness, you may need to stay in the hospital. Care during severe illness may include: IV (intravenous) fluids.These are given through a vein to help keep your body hydrated. Oxygen. Supplemental oxygen or ventilation with a breathing machine (ventilator) may be given. This is done to keep enough oxygen in your body. Are you at risk for COVID-19? If youve been to a place where people have been sick with this virus, you are at risk for infection. You are at risk if you: Recently traveled to an affected area Had contact with a sick person who recently traveled to this area Had contact with a person who was diagnosed with COVID-19 How can COVID-19 be prevented? There is no vaccine yet. The best prevention is to not have contact with the virus. The CDC advises that people should not travel to areas where there are COVID-19 outbreaks right now for any reason that is not urgent. To help prevent spreading the infection, wash your hands often, or use an alcohol-basedhand locomotive operator helper. If you are in an area with COVID-19: Wash your hands often. Or use an alcohol-based hand locomotive operator helper often. Only touch your eyes, nose, or mouth with clean hands. Dont have contact with people who are sick. Follow local instructions about being in public. For example, you may be told to not use public transport for a period of time. Stay away from markets that have live or animals. Wash your hands after touching any animals. Don't touch animals that may be sick. Dont share eating or drinking tools with sick people. Dont kiss someone who is sick. Clean surfaces often with disinfectant. If you were in an area with COVID-19 in the last 14 days: Call your healthcare provider. He or she can talk with local health staff to see what action may be needed. Follow all instructions from your provider. Take your temperature every morning and evening for at least 14 days. This is to check for fever. Keep a record of the readings. Keep watch for symptoms of the virus. Tell your provider right away if you have symptoms. If you were in an area with COVID-19 and have a fever or other symptoms: Dont panic. Keep in mind that other illnesses can cause similar symptoms. Stay away from work, school, and public places. Limit physical contact with family members. Don't kiss anyone or share eating or drinking utensils. Clean surfaces you touch with disinfectant. This is to help prevent the virus from spreading. Call your healthcare provider. Explain that you have been exposed to COVID-19 and have symptoms. Do this before going to any hospital. Wait for instructions. Keep in mind that healthcare staff may wear protective equipment such as masks, gowns, gloves, and eye protection. You may be put in a separate room. This is to prevent the possible virus from spreading. Tell the healthcare staff about recent travel. This includes local travel on public transport. Staff may need to find other people you have been in contact with. Follow all instructions the healthcare staff give you. If you have been diagnosed with COVID-19 Follow all instructions from your healthcare provider. Dont leave your home, except to get medical care. Call your healthcare providers office before going. They can prepare and give you instructions. This will help prevent the virus from spreading. Dont go to work, school, or public areas. Dont use public transport or taxis. Stay away from other people in your home. Have them wear face masks around you. Dont share household items or food. Wear a face mask if you can. This includes at home or in a medical facility. Cover your face with a tissue when you cough or sneeze. Throw the tissue away. Wash your hands. Wash your hands often. Caregivers should: Follow all instructions from healthcare staff. Wear a face mask and protective clothing as advised. Wash hands often. Keep track of the sick persons symptoms. Clean surfaces, fabrics, and laundry thoroughly. Keep other people away from the sick person. When to call your healthcare provider Call your healthcare provider: If youve recently traveled and have symptoms If you have been diagnosed with COVID-19 and your symptoms are worse To learn more To find out more about COVID-19, visit the CDC website at www.cdc.gov/coronavirus/2019-ncov/index.html. [employer]. [address] [place] [address]. All rights reserved. This information is not intended as a substitute for professional medical care. Always follow your healthcare professional's instructions. This information has been adapted from [employer] Pending Studies at Discharge: No Stand-Alone Forms: My [facility] [employer], Smoking Cessation Medications and DC Order Prescriptions: New doxycycline hyclate 100 mg Capsule 100 mg PO BID 4 Days Qty: 8 RF: 0 metformin [Glucophage XR] 500 mg tablet extended release 24 hr 500 mg PO DAILY Qty: 30 RF: 0 Continued metoprolol succinate 100 mg Tablet Extended Release 24 Hr 100 mg PO QPM RF: 0 tamsulosin 0.4 mg Capsule 0.4 mg PO QPM RF: 0 atorvastatin 40 mg tablet 40 mg PO QPM RF: 0 lisinopril 10 mg tablet 10 mg PO QPM RF: 0 Discharge Orders: Discharge Order (Routine); Ordered 11/09/20 Ordered By: Parker Galdamez/Other Patient Handouts: High Blood Sugar (Hyperglycemia), Hypoglycemia (Low Blood Sugar), Managing Type 2 Diabetes, Exercise to Manage Your Blood Sugar, 5 Steps for Eating Healthier, Understanding Type 2 Diabetes, A1C Admission Data Admit Date/Time: 11/08/20 06:31 Attending Provider: Parker Sanford Admit Provider: Ganga Aleman Primary Care Provider: Tony Dupree Other Providers: Ganga Aleman Other Interventions: Discharge Summary Assessment (RN) Last Done: 11/09/20 17:14
== END 2020-11-09 17:40 | disposition home or self-care (01) | DRG 177 ==
LOC: ED 02:52 → 2W 06:31

== ENCOUNTER 2021-07-29 10:00 | Inpatient (IN) ==
[2021-07-29 11:39] LABS: Basophils # (auto) 0.05 K/uL (0-0.2); Basophils % (auto) 0.3 %; Eosinophils # (auto) 5.14 K/uL (0-0.5); Hematocrit (blood only) 45.2 % (42-52); Hemoglobin 15.8 g/dL (14.0-18.0); Immature Granulocytes # (auto) 0.09 K/uL (0.00-0.02); Immature Granulocytes % (auto) 0.5 %; Lymphocytes # (auto) 1.53 K/uL (1.2-3.4); Lymphocytes % (auto) 8.6 %; Mean Corpuscular Hemoglobin 31.2 pg (25-34); Mean Corpuscular Volume 89.3 fL (80-100); Mean Platelet Volume 10.7 fL (7.4-10.4); Monocytes # (auto) 1.01 K/uL (0.11-0.59); Monocytes % (auto) 5.7 %; Neutrophils # (auto) 9.92 K/uL (1.4-6.5); Neutrophils % (auto) 55.9 %; Platelet Count 241 K/uL (130-400); RDW Coefficient of Variation 14.2 % (11.5-14.5); Red Blood Count 5.06 M/uL (4.7-6.1); White Blood Count 17.74 K/uL (4.8-10.8)
[2021-07-29 11:59] LABS: Albumin Level 2.8 gm/dl (3.4-5.0); BUN Creatinine Ratio 11.6 (10-20); Calcium 9.3 mg/dl (8.5-10.1); Creatinine Clr Calc Pharmacy 21.9 ml/min; Est GFR (African American) 22.3 ml/min; Est GFR (Non-African American) 19.2 ml/min; Potassium 4.5 mmol/L (3.5-5.1)
[2021-07-29 12:07] LABS: INR 1.1 (0.9-1.1); Partial Thromboplastin Time 27.5 Seconds (21.0-31.0); Prothrombin Time 11.3 Seconds (9.0-12.0)
[2021-07-29] MEDS ORDERED: SODIUM CHLORIDE 0.9% 1000ML 1,000 ML IV SCH (12:15)
[2021-07-29 12:17] LABS: Albumin Globulin Ratio 0.6 (0.9-2); Bilirubin,Total 0.6 mg/dl (0.2-1); Globulin 4.7 gm/dl (2.5-4.0); Total Protein 7.5 gm/dl (6.4-8.2); Troponin I 0.139 ng/ml (0-0.045)
--- NOTE | 2021-07-29 12:35 | XRay Report ---
XR chest 1V portable HISTORY: Shortness of breath. COMPARISON: Chest 11/08/2020. FINDINGS: No focal lung consolidations to suggest pneumonia. No evidence for pulmonary edema. The hea rt remains top normal in size. No pleural fusions. No pneumothorax. Old, healed right-sided rib fract ures again noted. IMPRESSION: No acute process. ACT 112: Negative or not required by law. Electronically signed by: Ed Corcoran M.D. 07/29/2021 12:33 PM
--- NOTE | 2021-07-29 13:44 | CT Scan Report ---
CT SCAN OF THE ABDOMEN AND PELVIS WITHOUT IV CONTRAST CLINICAL HISTORY: Acute renal insufficiency. Urinary retention. COMPARISON STUDY: MRCP dated 04/14/2013. Chest CT dated 03/15/2021. TECHNIQUE: CT scan of the abdomen and pelvis is performed from the lung bases to the proximal femora. Images are reviewed in the axial, sagittal, and coronal planes. IV contrast was not administered for this examination. Note that the examination is suboptimal without oral and IV contrast. A dose lower ing technique was utilized adhering to the principles of ALARA. CT DOSE: 839.64 mGycm FINDINGS: Lung bases: The heart is normal in size and without pericardial effusion. The coronary arteries are d ensely calcified. There is a small hiatal hernia. Foci of tree-in-bud nodularity are present at both lung bases. No pleural effusion is identified. A 2.1 cm irregular nodule is seen at the right lung ba se on image #39. Peribronchial thickening is present in the lower lobes. Liver: The unenhanced liver is normal in size, contour, and attenuation. There is no intrahepatic milagros iary ductal dilatation. Gallbladder: Surgically absent noting clips in the gallbladder fossa. Spleen: Normal in size and attenuation. Pancreas: The unenhanced pancreas is moderately atrophic and grossly unremarkable. Adrenal glands: Unremarkable. Kidneys: The unenhanced kidneys demonstrate cortical atrophy and are without hydronephrosis. There is a 9 mm calculus in the left renal pelvis seen on image #171. An additional 3 mm nonobstructing calcu justyna is seen in the left lower pole. No right renal calculi are identified and there is no ureteral st one. There is no evidence of contour deforming renal mass lesion. Abdominal vasculature: The abdominal aorta is normal in course and caliber noting advanced atheroscle rotic calcification. Bowel: The small bowel and colon are normal in course and caliber. The appendix is well-visualized a nd normal. Peritoneum: No intraperitoneal free air is identified. Trace free fluid is seen in the pelvis. Lymphadenopathy: None. Pelvic viscera: The prostate gland is enlarged and heterogeneous measuring 5.8 cm in transverse diame ter. The bladder is decompressed and a Huerta catheter and not well evaluated. Foci of intraluminal ga s are likely related to instrumentation. Skeletal structures: The skeletal structures are osteopenic. There is moderate lumbosacral spondylosi s. No lytic or blastic lesions are seen. IMPRESSION: 1. Trace free fluid in the pelvis is a nonspecific but abnormal finding and may be reactive. Clinical correlation will be required. 2. Left-sided nephrolithiasis. 3. Tree-in-bud airspace opacities at both lung bases suggests a nonspecific infectious/inflammatory p neumonitis. Clinical correlation will be required. 4. A 2.1 cm irregular nodular opacity is seen at the right lung base. This is new from 03/15/2021 and l ikely on an infectious/inflammatory basis. Neoplasm is considered much less likely and a follow-up est CT in 3 months time is recommended to document resolution. 5. Prostatomegaly. 6. Additional findings as above. ACT 112: Positive. There are findings on this exam that require communication between the performing entity and the patient following Patient Test Result Information Act ([place] Act 112) guidelines. Electronically signed by: Prasanth Aguayo M.D. 07/29/2021 1:43 PM
[2021-07-29 13:54] LABS: Appearance Urine Cloudy (Clear); Bacteria Urine Automated Negative (Negative); Blood Urine Trace (Negative); Color Urine Dark Yellow; Epithelial Cell Urine Auto >30 /lpf (0-5); Glucose Urine UA Negative (Negative); Ketones Urine 1+ (Negative); Leukocyte Esterase Urine 1+ (Negative); Nitrite Urine Positive (Negative); Protein Urine 1+ (Negative); Specific Gravity Urine 1.023 (1.000-1.030); Urobilinogen Urine Negative (Negative)
[2021-07-29] MEDS ORDERED: cefTRIAXone SODIUM 1,000 MG/50 ML BAG IV STA (14:01)
[2021-07-29] MEDS ORDERED: AZITHROMYCIN 250 MG TAB PO ONE (14:01)
[2021-07-29 14:10] LABS: Bilirubin Urine 1+ (Negative)
[2021-07-29 14:25] LABS: Calcium Oxalate Crystals Urine Present (None Prsent)
[2021-07-29 14:27] LABS: Renal Epithelial Cells Urine 0-5 /lpf (0-5)
--- NOTE | 2021-07-29 15:26 | Emergency Department Note ---
History of Present Illness General Chief Complaint: Shortness of Breath/Dyspnea Stated Complaint: SOB Time Seen by Provider: 07/29/21 12:04 History of Present Illness Provider Complaint: shortness of breath Onset (ago): day(s) (3) Severity: moderate Relieved By: + nothing Exacerbated By: + coughing Context: + recent illness Associated symptoms: + cough, + sputum production and + chest congestion; no fever, no wheezing, no paresthesias, no palpitations, no hemoptysis, no diaphoresis, no syncope or no abdominal pain Home Medications Medication Instructions Recorded Confirmed Type metoprolol succinate 100 mg 100 mg PO DAILY 09/22/18 07/29/21 History tablet,extended release 24 hr tamsulosin 0.4 mg capsule 0.4 mg PO QPM 09/22/18 07/29/21 History atorvastatin 40 mg tablet 40 mg PO QPM 11/08/20 07/29/21 History lisinopril 10 mg tablet 10 mg PO QPM 11/08/20 07/29/21 History montelukast 10 mg tablet 10 mg PO DAILY 04/26/21 07/29/21 History loratadine 10 mg tablet (Claritin) 10 mg PO DAILY 07/29/21 07/29/21 History metformin 500 mg tablet,extended 500 mg PO BID 07/29/21 07/29/21 History release 24 hr vitamins A,C,[id number] 7,160 2 tab PO BID 07/29/21 07/29/21 History unit-113 mg-100 unit tablet (PreserVision AREDS) Allergies Allergy/AdvReac Type Severity Reaction Status Date / Time No Known Allergies Allergy Unknown Verified 07/29/21 14:11 Past Med/Surg History Medical History Acute hypoxemic respiratory failure COVID-19 High cholesterol Hx of cleft palate surgically repaired Hypertension Lower extremity edema Multiple pulmonary nodules determined by computed tomography of lung Shortness of breath Sinus congestion Surgical History History of cataract surgery rt. 11/23/18. 4mg versed. no issues. 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 Beliefs That Will Affect Care: None Current Living Situation: Spouse Feels Safe at Home: Yes Assistive Devices: None Review of Systems A total of 10 systems reviewed and were otherwise negative Physical Exam Vital Signs: Vital Signs - 24 hr 07/29/21 10:24 07/29/21 12:00 07/29/21 12:15 Temperature 36.8 C Temperature Source Skin Pulse Rate 106 H Pulse Rate [Apical ] 80 Pulse Rhythm Regular Pulse Rhythm [Apic al] Regular Pulse Strength Normal Respiratory Rate 20 20 Respiratory Effort / Characteristics Non-Labored Sponta neous Non-Labored Sponta neous Respiratory Depth Normal Normal Respiratory Patter n Regular Regular Blood Pressure 102/64 Blood Pressure [Ri ght Arm] 101/56 L Blood Pressure Bita n 76 Blood Pressure Biat n [Right Arm] 71 Pulse Oximetry 90 93 87 L Oxygen Delivery Me thod Room Air Room Air Room Air Oxygen Flow Rate Sepsis Recent Feve r Within 48 Hours No Sepsis New/Unexpla ined Change in Men yaquelin Status N/A Sepsis Action Take n by Nursing No Action Required 07/29/21 12:16 07/29/21 13:45 Temperature Temperature Source Pulse Rate Pulse Rate [Apical ] 95 H Pulse Rhythm Pulse Rhythm [Apic al] Pulse Strength Respiratory Rate 22 Respiratory Effort / Characteristics Spontaneous Respiratory Depth Respiratory Patter n Regular Blood Pressure Blood Pressure [Ri ght Arm] 145/71 H Blood Pressure Bita n Blood Pressure Bita n [Right Arm] 95 Pulse Oximetry 94 94 Oxygen Delivery Me thod Nasal Cannula Nasal Cannula Oxygen Flow Rate 2 2 Sepsis Recent Feve r Within 48 Hours Sepsis New/Unexpla ined Change in Men yaquelin Status Sepsis Action Take n by Nursing Physical Exam: Physical Exam GENERAL: He is oriented to person, place, and time. He appears well-developed a nd well-nourished. He does not appear distressed. HENT: Exam performed. - Head: Normocephalic and atraumatic. - Right Ear: External ear normal. No mastoid tenderness. - Left Ear: External ear normal. No mastoid tenderness. - Mouth/Throat: The oropharynx is clear and moist. No trismus in the jaw. No dental abscesses or uvula swelling. No oropharyngeal exudate or tonsillar abscesses. EYES: Conjunctivae and EOM are normal. Pupils are equal, round, and reactive to light. Right eye exhibits no discharge. Left eye exhibits no discharge. No scleral icterus. NECK: Normal range of motion. Neck supple. No JVD present. No spinous process tenderness present. No carotid bruit present. No rigidity. No tracheal deviation and normal range of motion present. No Brudzinski's sign and no Kernig's sign noted. CV: Normal rate, regular rhythm, normal heart sounds and intact distal pulses. There is no peripheral edema. Palpable radial pulses bue. PULM/CHEST: Rhonchi bilaterally. - Chest Wall: He exhibits no tenderness. ABD: The abdomen is soft. Bowel sounds are normal. He has no distension. No mass is present. There is no tenderness. There is no rebound, no guarding, no Lou's sign and no tenderness at McBurney's point. Rovsig negative. MUSC/SKEL: Normal range of motion. There is no peripheral edema, tenderness or deformity. LYMPH: No cervical adenopathy. NEURO: He is alert and oriented to person, place, and time. He has normal strength. No cranial nerve deficit or sensory deficit. Coordination and gait normal. GCS eye subscore is 4. GCS verbal subscore is 5. GCS motor subscore is 6. Cerebellar tests wnl. SKIN: Skin is warm and dry. He is not diaphoretic. PSYCH: He has a normal mood and affect. Behavior is normal. Judgment and thought content normal. Course Course 1204: The patient was evaluated in room C4. A complete history and physical exam was performed Cardiac monitoring: An order was placed for continuous cardiac monitoring. The monitor shows a rate of 100 with sinus rhythm Patient was seen during a time of extreme volume and extreme acuity during the COVID-19 pandemic. Nursing triage protocols were initiated and labs were drawn by protocol in the triage area. Patient hypoxic on room air, patient's oxygen saturation improved with 2 L nasal cannula. Labs done in the triage area so a leukocytosis of 17.7. Creatinine is 2.94, more than tripled the patient's baseline. Will obtain a CT of the abdomen as well as place of Huerta given the patient's acute kidney injury. 1400: Vital signs stable on 2 L supplemental oxygen via nasal cannula. Lactic acid is within normal limits. Urinalysis appears possibly infected. Procalcitonin elevated 0.89. Checks x-ray is negative. CT of the abdomen Shows airspace opacities in the lung bases. Given the patient's leukocytosis, shannan vated procalcitonin level, hypoxia, and symptoms, is thought that the patient most likely suffering from pneumonia. Patient be treated with Rocephin and azithromycin. Discussed the case with [facility] hospitalist Dr. Díaz who will evaluate the patient for admission. Administered Medications Sodium Chloride (Nss 1000ml) 1,000 mls @ 125 mls/hr IV .Q8H ROGERS Stop: 08/28/21 12:14 Last Admin: 07/29/21 13:39 Dose: 125 mls/hr Documented by: [id number] Discontinued Medications Azithromycin (Azithromycin 250 Mg Tab) 500 mg PO NOW ONE Stop: 07/29/21 14:02 Last Admin: 07/29/21 14:09 Dose: 500 mg Documented by: [id number] Ceftriaxone Sodium (Rocephin) 1,000 mg in 50 mls @ 100 mls/hr IV NOW STA Stop: 07/29/21 14:30 Last Infusion: 07/29/21 14:41 Dose: 0 mls/hr Documented by: [id number] Admin: 07/29/21 14:09 Dose: 100 mls/hr Documented by: [id number] Medical Decision Making Laboratory Data Result diagrams: 07/29/21 11:24 07/29/21 11:24 Lab Results 07/29/21 07/29/21 07/29/21 Range/Units 11:24 11:24 11:24 WBC 17.74 H (4.8-10.8) K/uL RBC 5.06 (4.7-6.1) M/uL Hgb 15.8 (14.0-18.0) g/dL Hct 45.2 (42-52) % MCV 89.3 (80-100) fL MCH 31.2 (25-34) pg MCHC 35.0 (32-36) g/dL RDW Std Deviation 46.0 (36.4-46.3) fL RDW Coeff of Norma 14.2 (11.5-14.5) % Plt Count 241 (130-400) K/uL MPV 10.7 H (7.4-10.4) fL Immature Gran % (Auto) 0.5 % Neut % (Auto) 55.9 % Lymph % (Auto) 8.6 % [place] % (Auto) 5.7 % Eos % (Auto) 29.0 % Baso % (Auto) 0.3 % Neut # (Auto) 9.92 H (1.4-6.5) K/uL Lymph # (Auto) 1.53 (1.2-3.4) K/uL [place] # (Auto) 1.01 H (0.11-0.59) K/uL Eos # (Auto) 5.14 H (0-0.5) K/uL Baso # (Auto) 0.05 (0-0.2) K/uL Immature Gran # (Auto) 0.09 H (0.00-0.02) K/uL PT 11.3 (9.0-12.0) Seconds INR 1.1 (0.9-1.1) APTT 27.5 (21.0-31.0) Seconds PTT Ratio 1.0 Sodium 136 (136-145) mmol/L Potassium 4.5 (3.5-5.1) mmol/L Chloride 102 (98-107) mmol/L Carbon Dioxide 26 (21-32) mmol/L Anion Gap 8.0 (3-11) BUN 34 H (7-18) mg/dl Creatinine 2.94 H (0.6-1.4) mg/dl Est Cr Clr Drug Dosing 21.9 ml/min Est GFR ( Amer) 22.3 ml/min Est GFR (Non-Af Amer) 19.2 ml/min BUN/Creatinine Ratio 11.6 (10-20) Glucose 167 H (70-99) mg/dl Lactate (0.4-2.0) mmol/L Calcium 9.3 (8.5-10.1) mg/dl Magnesium 2.0 (1.8-2.4) mg/dl Total Bilirubin 0.6 (0.2-1) mg/dl AST 39 H (15-37) U/L ALT 97 H (12-78) U/L Alkaline Phosphatase 525 H (45-117) U/L Troponin I 0.139 H* (0-0.045) ng/ml Total Protein 7.5 (6.4-8.2) gm/dl Albumin 2.8 L (3.4-5.0) gm/dl Globulin 4.7 H (2.5-4.0) gm/dl Albumin/Globulin Ratio 0.6 L (0.9-2) Procalcitonin (0-0.5) ng/ml Urine Color Urine Appearance (Clear) Urine pH (4.5-7.5) Ur Specific [place] (1.000-1.030) Urine Protein (Negative) Urine Glucose (UA) (Negative) Urine Ketones (Negative) Urine Blood (Negative) Urine Nitrite (Negative) Urine Bilirubin (Negative) Urine Urobilinogen (Negative) Ur Leukocyte Esterase (Negative) Urine WBC (Auto) (0-5) /hpf Urine RBC (Auto) (0-4) /hpf U Hyaline Cast (Auto) (0-5) /lpf U Epithel Cells (Auto) (0-5) /lpf Urine Bacteria (Auto) (Negative) Ur Renal Epithelial Cell (0-5) /lpf Calcium Oxalate Crystal (None Prsent) Urine Yeast COVID-19 Eval Order SARS-CoV-2 (PCR) (Negative) 07/29/21 07/29/21 07/29/21 Range/Units 11:24 12:49 13:05 WBC (4.8-10.8) K/uL RBC (4.7-6.1) M/uL Hgb (14.0-18.0) g/dL Hct (42-52) % MCV (80-100) fL MCH (25-34) pg MCHC (32-36) g/dL RDW Std Deviation (36.4-46.3) fL RDW Coeff of Norma (11.5-14.5) % Plt Count (130-400) K/uL MPV (7.4-10.4) fL Immature Gran % (Auto) % Neut % (Auto) % Lymph % (Auto) % [place] % (Auto) % Eos % (Auto) % Baso % (Auto) % Neut # (Auto) (1.4-6.5) K/uL Lymph # (Auto) (1.2-3.4) K/uL [place] # (Auto) (0.11-0.59) K/uL Eos # (Auto) (0-0.5) K/uL Baso # (Auto) (0-0.2) K/uL Immature Gran # (Auto) (0.00-0.02) K/uL PT (9.0-12.0) Seconds INR (0.9-1.1) APTT (21.0-31.0) Seconds PTT Ratio Sodium (136-145) mmol/L Potassium (3.5-5.1) mmol/L Chloride (98-107) mmol/L Carbon Dioxide (21-32) mmol/L Anion Gap (3-11) BUN (7-18) mg/dl Creatinine (0.6-1.4) mg/dl Est Cr Clr Drug Dosing ml/min Est GFR ( Amer) ml/min Est GFR (Non-Af Amer) ml/min BUN/Creatinine Ratio (10-20) Glucose (70-99) mg/dl Lactate 1.8 (0.4-2.0) mmol/L Calcium (8.5-10.1) mg/dl Magnesium (1.8-2.4) mg/dl Total Bilirubin (0.2-1) mg/dl AST (15-37) U/L ALT (12-78) U/L Alkaline Phosphatase (45-117) U/L Troponin I (0-0.045) ng/ml Total Protein (6.4-8.2) gm/dl Albumin (3.4-5.0) gm/dl Globulin (2.5-4.0) gm/dl Albumin/Globulin Ratio (0.9-2) Procalcitonin 0.89 H (0-0.5) ng/ml Urine Color Dark Yellow Urine Appearance Cloudy A (Clear) Urine pH 5.0 (4.5-7.5) Ur Specific [place] 1.023 (1.000-1.030) Urine Protein 1+ H (Negative) Urine Glucose (UA) Negative (Negative) Urine Ketones 1+ H (Negative) Urine Blood Trace H (Negative) Urine Nitrite Positive A (Negative) Urine Bilirubin 1+ H (Negative) Urine Urobilinogen Negative (Negative) Ur Leukocyte Esterase 1+ H (Negative) Urine WBC (Auto) 10-30 H (0-5) /hpf Urine RBC (Auto) 5-10 H (0-4) /hpf U Hyaline Cast (Auto) 10-30 H (0-5) /lpf U Epithel Cells (Auto) >30 H (0-5) /lpf Urine Bacteria (Auto) Negative (Negative) Ur Renal Epithelial Cell 0-5 (0-5) /lpf Calcium Oxalate Crystal Present A (None Prsent) Urine Yeast Not Reportable COVID-19 Eval Order SARS-CoV-2 (PCR) (Negative) 07/29/21 07/29/21 Range/Units 13:05 13:05 WBC (4.8-10.8) K/uL RBC (4.7-6.1) M/uL Hgb (14.0-18.0) g/dL Hct (42-52) % MCV (80-100) fL MCH (25-34) pg MCHC (32-36) g/dL RDW Std Deviation (36.4-46.3) fL RDW Coeff of Norma (11.5-14.5) % Plt Count (130-400) K/uL MPV (7.4-10.4) fL Immature Gran % (Auto) % Neut % (Auto) % Lymph % (Auto) % [place] % (Auto) % Eos % (Auto) % Baso % (Auto) % Neut # (Auto) (1.4-6.5) K/uL Lymph # (Auto) (1.2-3.4) K/uL [place] # (Auto) (0.11-0.59) K/uL Eos # (Auto) (0-0.5) K/uL Baso # (Auto) (0-0.2) K/uL Immature Gran # (Auto) (0.00-0.02) K/uL PT (9.0-12.0) Seconds INR (0.9-1.1) APTT (21.0-31.0) Seconds PTT Ratio Sodium (136-145) mmol/L Potassium (3.5-5.1) mmol/L Chloride (98-107) mmol/L Carbon Dioxide (21-32) mmol/L Anion Gap (3-11) BUN (7-18) mg/dl Creatinine (0.6-1.4) mg/dl Est Cr Clr Drug Dosing ml/min Est GFR ( Amer) ml/min Est GFR (Non-Af Amer) ml/min BUN/Creatinine Ratio (10-20) Glucose (70-99) mg/dl Lactate (0.4-2.0) mmol/L Calcium (8.5-10.1) mg/dl Magnesium (1.8-2.4) mg/dl Total Bilirubin (0.2-1) mg/dl AST (15-37) U/L ALT (12-78) U/L Alkaline Phosphatase (45-117) U/L Troponin I (0-0.045) ng/ml Total Protein (6.4-8.2) gm/dl Albumin (3.4-5.0) gm/dl Globulin (2.5-4.0) gm/dl Albumin/Globulin Ratio (0.9-2) Procalcitonin (0-0.5) ng/ml Urine Color Urine Appearance (Clear) Urine pH (4.5-7.5) Ur Specific [place] (1.000-1.030) Urine Protein (Negative) Urine Glucose (UA) (Negative) Urine Ketones (Negative) Urine Blood (Negative) Urine Nitrite (Negative) Urine Bilirubin (Negative) Urine Urobilinogen (Negative) Ur Leukocyte Esterase (Negative) Urine WBC (Auto) (0-5) /hpf Urine RBC (Auto) (0-4) /hpf U Hyaline Cast (Auto) (0-5) /lpf U Epithel Cells (Auto) (0-5) /lpf Urine Bacteria (Auto) (Negative) Ur Renal Epithelial Cell (0-5) /lpf Calcium Oxalate Crystal (None Prsent) Urine Yeast COVID-19 Eval Order Covid19 at [facility] SARS-CoV-2 (PCR) NEGATIVE (Negative) Imaging Data Radiologist's Impression: Chest X-Ray 07/29/21 11:21 XR chest 1V portable HISTORY: Shortness of breath. COMPARISON: Chest 11/08/2020. FINDINGS: No focal lung consolidations to suggest pneumonia. No evidence for pulmonary edema. The heart remains top normal in size. No pleural fusions. No pneumothorax. Old, healed right-sided rib fractures again noted. IMPRESSION: No acute process. ACT 112: Negative or not required by law. Electronically signed by: Ed Corcoran M.D. 07/29/2021 12:33 PM Abdomen/Pelvis CT 07/29/21 12:26 CT SCAN OF THE ABDOMEN AND PELVIS WITHOUT IV CONTRAST CLINICAL HISTORY: Acute renal insufficiency. Urinary retention. COMPARISON STUDY: MRCP dated 04/14/2013. Chest CT dated 03/15/2021. TECHNIQUE: CT scan of the abdomen and pelvis is performed from the lung bases to the proximal femora. Images are reviewed in the axial, sagittal, and coronal planes. IV contrast was not administered for this examination. Note that the examination is suboptimal without oral and IV contrast. A dose lowering technique was utilized adhering to the principles of ALARA. CT DOSE: 839.64 mGycm FINDINGS: Lung bases: The heart is normal in size and without pericardial effusion. The coronary arteries are densely calcified. There is a small hiatal hernia. Foci of tree-in-bud nodularity are present at both lung bases. No pleural effusion is identified. A 2.1 cm irregular nodule is seen at the right lung base on image #39. Peribronchial thickening is present in the lower lobes. Liver: The unenhanced liver is normal in size, contour, and attenuation. There is no intrahepatic biliary ductal dilatation. Gallbladder: Surgically absent noting clips in the gallbladder fossa. Spleen: Normal in size and attenuation. Pancreas: The unenhanced pancreas is moderately atrophic and grossly unremarkable. Adrenal glands: Unremarkable. Kidneys: The unenhanced kidneys demonstrate cortical atrophy and are without hydronephrosis. There is a 9 mm calculus in the left renal pelvis seen on image #171. An additional 3 mm nonobstructing calculus is seen in the left lower pole. No right renal calculi are identified and there is no ureteral stone. There is no evidence of contour deforming renal mass lesion. Abdominal vasculature: The abdominal aorta is normal in course and caliber noting advanced atherosclerotic calcification. Bowel: The small bowel and colon are normal in course and caliber. The appendix is well-visualized and normal. Peritoneum: No intraperitoneal free air is identified. Trace free fluid is seen in the pelvis. Lymphadenopathy: None. Pelvic viscera: The prostate gland is enlarged and heterogeneous measuring 5.8 cm in transverse diameter. The bladder is decompressed and a Huerta catheter and not well evaluated. Foci of intraluminal gas are likely related to instrumentation. Skeletal structures: The skeletal structures are osteopenic. There is moderate lumbosacral spondylosis. No lytic or blastic lesions are seen. IMPRESSION: 1. Trace free fluid in the pelvis is a nonspecific but abnormal finding and may be reactive. Clinical correlation will be required. 2. Left-sided nephrolithiasis. 3. Tree-in-bud airspace opacities at both lung bases suggests a nonspecific infectious/inflammatory pneumonitis. Clinical correlation will be required. 4. A 2.1 cm irregular nodular opacity is seen at the right lung base. This is new from 03/15/2021 and likely on an infectious/inflammatory basis. Neoplasm is considered much less likely and a follow-up chest CT in 3 months time is recommended to document resolution. 5. Prostatomegaly. 6. Additional findings as above. ACT 112: Positive. There are findings on this exam that require communication between the performing entity and the patient following Patient Test Result Information Act ([place] Act 112) guidelines. Electronically signed by: Prasanth Aguayo M.D. 07/29/2021 1:43 PM ECG Data Interpretation: Sinus rhythm with a rate of 91. IA 142 QRS 126 QTC 477. Left bundle branch block present. sgarbosa negative [facility] Narrative 1204: The patient was evaluated in room C4. A complete history and physical exam was performed Cardiac monitoring: An order was placed for continuous cardiac monitoring. The monitor shows a rate of 100 with sinus rhythm Patient was seen during a time of extreme volume and extreme acuity during the COVID-19 pandemic. Nursing triage protocols were initiated and labs were drawn by protocol in the triage area. Patient hypoxic on room air, patient's oxygen saturation improved with 2 L nasal cannula. Labs done in the triage area so a leukocytosis of 17.7. Creatinine is 2.94, more than tripled the patient's baseline. Will obtain a CT of the abdomen as well as place of Huerta given the patient's acute kidney injury. 1400: Vital signs stable on 2 L supplemental oxygen via nasal cannula. Lactic acid is within normal limits. Urinalysis appears possibly infected. Procalcitonin elevated 0.89. Checks x-ray is negative. CT of the abdomen Shows airspace opacities in the lung bases. Given the patient's leukocytosis, elevated procalcitonin level, hypoxia, and symptoms, is thought that the patient most likely suffering from pneumonia. Patient be treated with Rocephin and azithromycin. Discussed the case with [facility] hospitalist Dr. Díaz who will evaluate the patient for admission. Impression & Plan Hypoxia, Pneumonia Critical Care Time Critical Care Time: Yes Total Critical Care Time: 52 I have personally spent greater than 52 minutes of critical care time in the direct management of this patient. This includes bedside care, interpretation of diagnostic studies, and testing, discussion with consultants, patient, and family members, and other required patient management activities. This 52 minutes is in excess of all separately billable procedures. Discharge Plan Visit Data Chief Complaint: Shortness of Breath/Dyspnea Stated Complaint: SOB Discharge Problem: Hypoxia, Pneumonia Patient Disposition: Admitted As Inpatient Forms Stand Alone Forms: [facility] Prescriptions Prescriptions: No Action montelukast 10 mg tablet 10 mg PO DAILY RF: 0 metoprolol succinate 100 mg Tablet Extended Release 24 Hr 100 mg PO DAILY RF: 0 tamsulosin 0.4 mg Capsule 0.4 mg PO QPM RF: 0 atorvastatin 40 mg tablet 40 mg PO QPM RF: 0 lisinopril 10 mg tablet 10 mg PO QPM RF: 0 metformin 500 mg tablet extended release 24 hr 500 mg PO BID RF: 0 loratadine [Claritin] 10 mg Tablet 10 mg PO DAILY RF: 0 PreserVision AREDS 7,160 unit- 113 mg-100 unit Tablet 2 tab PO BID RF: 0 Referrals Referrals: Tony Dupree MD [Primary Care Provider] -
--- NOTE | 2021-07-29 16:38 | Electrocardiogram Report ---
Test Reason : Blood Pressure : / mmHG Vent. Rate : 091 BPM Atrial Rate : 091 BPM P-R Int : 142 ms QRS Dur : 126 ms QT Int : 388 ms P-R-T Axes : 013 -28 118 degrees QTc Int : 477 ms Normal sinus rhythm Left bundle branch block Abnormal ECG When compared with ECG of 15-MAR-2021 19:14, No significant change was found Confirmed by Rex Diaz ([id number]) on 07/29/2021 4:38:27 PM Referred By: SELF Confirmed By:Rex Diaz
--- NOTE | 2021-07-29 16:42 | History & Physical Report ---
Date of Service July 29, 2021 Assessment & Plan (1) Sepsis: (2) BRANDI (acute kidney injury): (3) Hypoxia: (4) Pneumonia: (5) UTI (urinary tract infection): (6) Elevated troponin: (7) Diabetes type 2, controlled: (8) Hypertension: (9) COPD (chronic obstructive pulmonary disease): Plan: This is a 81-year-old male who has significant past medical history of T2DM, HTN, HLD, COPD, chronic LBBB, mediastinal adenopathy with lung nodules followed by pulmonology, nonalcoholic fatty liver disease, CKD stage II, BPH, history of Covid pneumonia who presents to ED with at bedside secondary to upper respiratory symptoms x1 week and diarrhea x1 day. Sepsis - meets criteria per current CMS guidelines for leukocytosis, tachycardia and evidence of infection possible UTI and pneumonia Bilateral pneumonitis UTI Hypoxia Admit to telemetry IV antibiotics Rocephin 2 g daily, oral doxycycline 100 mg twice daily Blood and urine cultures pending Lactic acid WNL, procalcitonin 0.[address] without contrast (pt did have outpt chest CT 06/05 f/u for pulm nodules showed stable pulm nodules, new ground glass density in RLL, 8mm) sputum culture if able to obtain pulmonary toilet with Xopenex/ipratropium nebs, incentive spirometry, flutter valve Speech evaluation to eval for aspiration Patient follows with pulmonology Dr. Cobb as outpatient, low threshold for pulmonary consultation Continue oxygen supplementation as needed, humidified oxygen ordered BRANDI - unknown etiology at time of admission Baseline creatinine 0.9 on 05/23/2021 BUN/creatinine 34 and 2.94 Huerta catheter placed - only 100ml UOP thus far, CT does not demonstrate hydro so less likely post renal Consult nephrology Strict I's and O's Urine studies ordered IVF hold metformin and lisinopril, avoid nephrotoxic agents Elevated troponin Chronic left on branch block EKG unchanged, patient without chest pain Cycle troponins Possibly in setting of demand ischemia due to BRANDI and infection Follows [employer] cards for chronic left bundle branch block, hypertension Last echocardiogram 09/21/2019 revealed EF 50%, grade 1 diastolic dysfunction Elevated LFTs AST 39, ALT 97, alk phos 525, total bilirubin 0.6 Known history of fatty liver disease Monitor No abdominal pain T2DM, controlled Last A1c 6.8 on 02/2021 Obtain A1c in a.m. Hold Metformin Lantus/NovoLog per protocol Hypertension Blood pressure stable, hold lisinopril due to BRANDI Continue metoprolol BPH on flomax Prostamegaly seen on CT No evidence of acute obstruction, Huerta catheter placed currently 100 mL output Will hold on urology consult for now Nephrolithiasis On CT There is a 9 mm calculus in the left renal pelvis seen on image and additional 3 mm nonobstructing calculus is seen in the left lower pole. DVT ppx: SQ Heparin FULL CODE PCP: Joon Pt was seen and examined in collaboration with Dr. Díaz, please see addendum History of Present Illness Chief Complaint: Sinus congestion and rhinorrhea x1 week; diarrhea x1 day. Primary Care Provider: Tony Dupree MD This is a 81-year-old male who has significant past medical history of T2DM, HTN, HLD, COPD, chronic LBBB, mediastinal adenopathy with lung nodules followed by pulmonology, nonalcoholic fatty liver disease, CKD stage II, BPH, history of Covid pneumonia who presents to ED with at bedside secondary to upper respiratory symptoms x1 week and diarrhea x1 day. Of significance patient had sinus congestion, clear rhinorrhea, postnasal drip, dry cough x1 week. Today he had 3 episodes of loose stool. He also experienced diffuse body itching. He tried to see PCP, but was unable to get in and opted to seek ED. He was taking macn-lnr-jwaxxrx Benadryl and Robitussin without much improvement. He denies any fever, chills, sweats, lightheadedness, dizziness, syncope, chest pain or palpitations. He does admit to dyspnea on exertion for the past week but denies any shortness breath at rest, orthopnea or hemoptysis. He denies any nausea, vomiting, abdominal pain. He does notice difficulty with urine stream and increased urine urgency but denies any hematuria, dysuria, melena or hematochezia. He admits to history of Covid 19 pneumonia and since then admits, "there continues to be things wrong with me." He continues to have loss of tast e and smell. He did lose approximately 15 pounds but this was post hospitalization after being diagnosed with diabetes and was intentional. His current appetite is diminished due to respiratory symptoms. He was diagnosed with COPD but states after getting over pneumonia stop taking his inhalers.In ED patient remained hemodynamically stable but he was noted to be mildly hypoxic with oxygen saturations 88 to 90% on room air. He was placed on 2 L. His lab abnormalities include leukocytosis to WBC 17.74k, BUN 34, creatinine 2.94, glucose 167, AST 39, ALT 97, alk phos 525, troponin 0.139, procalcitonin 0.89 and urinalysis concerning for infection. Chest x-ray was performed which was negative for acute abnormality. CT scan abdomen pelvis reveals left-sided nephrolithiasis, tree-in-bud airspace opacities at both lung bases suggestive of a noninfectious inflammatory pneumonitis, prostamegaly. He received IV Rocephin and azithromycin as well as IV fluids in ED. Allergies Allergy/AdvReac Type Severity Reaction Status Date / Time No Known Allergies Allergy Unknown Verified 07/29/21 14:11 Home Medications Medication Instructions Recorded Confirmed Type metoprolol succinate 100 mg 100 mg PO DAILY 09/22/18 07/29/21 History tablet,extended release 24 hr tamsulosin 0.4 mg capsule 0.4 mg PO QPM 09/22/18 07/29/21 History atorvastatin 40 mg tablet 40 mg PO QPM 11/08/20 07/29/21 History lisinopril 10 mg tablet 10 mg PO QPM 11/08/20 07/29/21 History montelukast 10 mg tablet 10 mg PO DAILY 04/26/21 07/29/21 History loratadine 10 mg tablet (Claritin) 10 mg PO DAILY 07/29/21 07/29/21 History metformin 500 mg tablet,extended 500 mg PO BID 07/29/21 07/29/21 History release 24 hr vitamins A,C,Y-swal-dntctg 7,160 2 tab PO BID 07/29/21 07/29/21 History unit-113 mg-100 unit tablet (PreserVision AREDS) Past Med/Surg History Medical History (Updated 07/29/21 @ 16:45 by Georgina Aleman PA-C) Acute hypoxemic respiratory failure COPD (chronic obstructive pulmonary disease) COVID-19 High cholesterol Hx of cleft palate surgically repaired Hypertension Lower extremity edema Multiple pulmonary nodules determined by computed tomography of lung Shortness of breath Sinus congestion Surgical History History of cataract surgery rt. 11/23/18. 4mg versed. no issues. 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 Beliefs That Will Affect Care: None marital status: Current Living Situation: Spouse Other Information That Helps Us Care for You: No Feels Safe at Home: Yes Safety Concerns: Feels Safe At This Time Assistive Devices: None Review of Systems Review of Systems: All systems reviewed & are unremarkable except as noted in HPI & below Physical Exam Physical Exam: Constitutional: Elderly, nontoxic appearing male,WD/WN, vitals as above, NAD, sitting up in bed, pleasant, conversing easily Head: Normocephalic, Atraumatic Eyes: PERRL, conjunctivae normal, anicteric sclerae ENMT: external ear and nose normal, oropharynx normal Neck: trachea midline, no thyromegaly normal visual inspection Respiratory: normal respiratory effort, lungs clear to auscultation, right middle and lower lobe positive rhonchi, positive expiratory wheeze, no rales. Normal insp/exp effort, no accessory muscle use Cardiovascular: RRR, no murmur, no edema Vessels: no JVD or carotid bruit Chest: normal inspection of chest Abdomen: normal bowel sounds, soft, nontender, no hepatosplenomegaly Musculoskeletal: no cyanosis or clubbing, extremities motor strength 5/5 Skin: no rashes, warm and dry normal turgor Neurologic: PERRL, EOMI, accommodation nl, no face palsy, no dysarthria CN's II-XI intact bilaterally and moves all extremities Psychiatric: A+Ox3, euthymic affect Lymphatic: no cervical or axillary lymphadenopathy : Positive Huerta catheter draining yellow urine Results & Data Results & Data ([facility]) Vital Signs (Past 12 Hours) Vital Signs Temp Pulse Pulse Resp BP BP Pulse Ox 07/29/21 16:00 97 H 24 91 07/29/21 15:30 97 H 27 H 117/62 90 07/29/21 15:00 93 H 28 H 130/55 L 90 07/29/21 14:30 94 H 27 H 122/58 L 93 07/29/21 14:00 92 H 27 H 111/56 L 94 07/29/21 13:45 95 H 22 145/71 H 94 07/29/21 13:30 101 H 25 H 145/71 H 93 07/29/21 12:16 94 07/29/21 12:15 87 L 07/29/21 12:00 80 20 101/56 L 93 07/29/21 10:24 36.8 C 106 H 20 102/64 90 Diagnostic Findings Chest X-Ray 07/29/21 11:21 XR chest 1V portable HISTORY: Shortness of breath. COMPARISON: Chest 11/08/2020. FINDINGS: No focal lung consolidations to suggest pneumonia. No evidence for pulmonary edema. The heart remains top normal in size. No pleural fusions. No pneumothorax. Old, healed right-sided rib fractures again noted. IMPRESSION: No acute process. ACT 112: Negative or not required by law. Electronically signed by: Ed Corcoran M.D. 07/29/2021 12:33 PM Abdomen/Pelvis CT 07/29/21 12:26 CT SCAN OF THE ABDOMEN AND PELVIS WITHOUT IV CONTRAST CLINICAL HISTORY: Acute renal insufficiency. Urinary retention. COMPARISON STUDY: MRCP dated 04/14/2013. Chest CT dated 03/15/2021. TECHNIQUE: CT scan of the abdomen and pelvis is performed from the lung bases to the proximal femora. Images are reviewed in the axial, sagittal, and coronal planes. IV contrast was not administered for this examination. Note that the examination is suboptimal without oral and IV contrast. A dose lowering technique was utilized adhering to the principles of ALARA. CT DOSE: 839.64 mGycm FINDINGS: Lung bases: The heart is normal in size and without pericardial effusion. The coronary arteries are densely calcified. There is a small hiatal hernia. Foci of tree-in-bud nodularity are present at both lung bases. No pleural effusion is identified. A 2.1 cm irregular nodule is seen at the right lung base on image #39. Peribronchial thickening is present in the lower lobes. Liver: The unenhanced liver is normal in size, contour, and attenuation. There is no intrahepatic biliary ductal dilatation. Gallbladder: Surgically absent noting clips in the gallbladder fossa. Spleen: Normal in size and attenuation. Pancreas: The unenhanced pancreas is moderately atrophic and grossly unremarkable. Adrenal glands: Unremarkable. Kidneys: The unenhanced kidneys demonstrate cortical atrophy and are without hydronephrosis. There is a 9 mm calculus in the left renal pelvis seen on image #171. An additional 3 mm nonobstructing calculus is seen in the left lower pole. No right renal calculi are identified and there is no ureteral stone. There is no evidence of contour deforming renal mass lesion. Abdominal vasculature: The abdominal aorta is normal in course and caliber noting advanced atherosclerotic calcification. Bowel: The small bowel and colon are normal in course and caliber. The appendix is well-visualized and normal. Peritoneum: No intraperitoneal free air is identified. Trace free fluid is seen in the pelvis. Lymphadenopathy: None. Pelvic viscera: The prostate gland is enlarged and heterogeneous measuring 5.8 cm in transverse diameter. The bladder is decompressed and a Huerta catheter and not well evaluated. Foci of intraluminal gas are likely related to instrumentation. Skeletal structures: The skeletal structures are osteopenic. There is moderate lumbosacral spondylosis. No lytic or blastic lesions are seen. IMPRESSION: 1. Trace free fluid in the pelvis is a nonspecific but abnormal finding and may be reactive. Clinical correlation will be required. 2. Left-sided nephrolithiasis. 3. Tree-in-bud airspace opacities at both lung bases suggests a nonspecific infectious/inflammatory pneumonitis. Clinical correlation will be required. 4. A 2.1 cm irregular nodular opacity is seen at the right lung base. This is new from 03/15/2021 and likely on an infectious/inflammatory basis. Neoplasm is considered much less likely and a follow-up chest CT in 3 months time is recommended to document resolution. 5. Prostatomegaly. 6. Additional findings as above. ACT 112: Positive. There are findings on this exam that require communication between the performing entity and the patient following Patient Test Result Information Act ([place] Act 112) guidelines. Electronically signed by: Prasanth Aguayo M.D. 07/29/2021 1:43 PM Medications Administered Medication List Sodium Chloride (Nss 1000ml) 1,000 mls @ 125 mls/hr IV .Q8H ROGERS Stop: 08/28/21 12:14 Last Admin: 07/29/21 13:39 Dose: 125 mls/hr Documented by: [id number] Discontinued Medications Azithromycin (Azithromycin 250 Mg Tab) 500 mg PO NOW ONE Stop: 07/29/21 14:02 Last Admin: 07/29/21 14:09 Dose: 500 mg Documented by: [id number] Ceftriaxone Sodium (Rocephin) 1,000 mg in 50 mls @ 100 mls/hr IV NOW STA Stop: 07/29/21 14:30 Last Infusion: 07/29/21 14:41 Dose: 0 mls/hr Documented by: [id number] Admin: 07/29/21 14:09 Dose: 100 mls/hr Documented by: [id number] ECG Rate (beats per minute): 91 Rhythm: normal sinus Findings: + LBBB COVID-19 Results Results COVID-19 Adm Lab Results: RBC 4.28 M/uL (4.7-6.1) L 07/30/21 WBC 16.49 K/uL (4.8-10.8) H 07/30/21 Hgb 13.0 g/dL (14.0-18.0) L 07/30/21 Hct 38.0 % (42-52) L 07/30/21 Plt Count 198 K/uL (130-400) 07/30/21 Neutrophils (%) (Auto) 43.7 % 07/30/21 Lymphocytes (%) (Auto) 12.2 % 07/30/21 Monocytes # (Auto) 0.98 K/uL (0.11-0.59) H 07/30/21 Eosinophils # (Auto) 6.22 K/uL (0-0.5) H 07/30/21 Immature Granulocyte % (Auto) 0.3 % 07/30/21 Neutrophils # (Auto) 7.18 K/uL (1.4-6.5) H 07/30/21 Lymphocytes # (Auto) 2.02 K/uL (1.2-3.4) 07/30/21 Monocytes # (Auto) 0.98 K/uL (0.11-0.59) H 07/30/21 Eosinophils # (Auto) 6.22 K/uL (0-0.5) H 07/30/21 Basophils # (Auto) 0.04 K/uL (0-0.2) 07/30/21 Immature Granulocyte # (Auto) 0.05 K/uL (0.00-0.02) H 07/30/21 Na 137 mmol/L (136-145) 07/30/21 K 4.3 mmol/L (3.5-5.1) 07/30/21 Cl 107 mmol/L (98-107) 07/30/21 CO2 21 mmol/L (21-32) 07/30/21 Anion Gap 9.0 (3-11) 07/30/21 BUN 30 mg/dl (7-18) H 07/30/21 Creatinine 1.43 mg/dl (0.6-1.4) H 07/30/21 BUN/Creatinine Ratio 20.7 (10-20) H 07/30/21 Glucose Level 146 mg/dl (70-99) H 07/30/21 Ca 8.7 mg/dl (8.5-10.1) 07/30/21 Phosphorus Level 3.0 mg/dl (2.5-4.9) 07/30/21 Total Bilirubin 0.5 mg/dl (0.2-1) 07/30/21 AST/SGOT 26 U/L (15-37) 07/30/21 ALT/SGPT 68 U/L (12-78) 07/30/21 Alkaline Phosphatase 416 U/L (45-117) H 07/30/21 Total Protein 6.4 gm/dl (6.4-8.2) 07/30/21 Albumin 2.3 gm/dl (3.4-5.0) L 07/30/21 Globulin 4.1 gm/dl (2.5-4.0) H 07/30/21 Albumin/Globulin Ratio 0.6 (0.9-2) L 07/30/21 Troponin I 0.146 ng/ml (0-0.045) H* 07/29/21 Procalcitonin 0.56 ng/ml (0-0.5) H 07/30/21 PTT 27.5 Seconds (21.0-31.0) 07/29/21 INR 1.1 (0.9-1.1) 07/29/21 COVID-19 PCR NEGATIVE (Negative) 07/29/[address] 07/29/21 Chest X-Ray 07/29/21 Code Status & VTE Plan Code Status Full code Supervising Physician Co-Signing Physician Notes Patient seen and examined by me, care coordinated with Roseline Aleman PA-C, please refer to her note above for further detail. 81 /o male w/T2DM, HTN, HLD, COPD, chronic LBBB, mediastinal adenopathy with lung nodules followed by pulmonology, nonalcoholic fatty liver disease, CKD stage II, BPH, history of Covid pneumonia who presents secondary to upper respiratory symptoms x1 week and diarrhea x1 day. Of significance patient had sinus congestion, clear rhinorrhea, postnasal drip, dry cough x1 week. Today he had 3 episodes of loose stool. He does admit to dyspnea on exertion for the past week but denies any shortness breath at rest, orthopnea or hemoptysis. He was diagnosed with COPD but states after getting over pneumonia stop taking his inhalers. In ED patient remained hemodynamically stable but he was noted to be mildly hypoxic with oxygen saturations 88 to 90% on room air. He was placed on 2 L. His lab abnormalities include leukocytosis to WBC 17.74k, BUN 34, creatinine 2.94, glucose 167, AST 39, ALT 97, alk phos 525, troponin 0.139, procalcitonin 0.89 and urinalysis concerning for infection. Chest x-ray was performed which was negative for acute abnormality. CT scan abdomen pelvis reveals left-sided nephrolithiasis, tree-in-bud airspace opacities at both lung bases suggestive of a noninfectious inflammatory pneumonitis, prostamegaly. He received IV Rocephin and azithromycin as well as IV fluids in ED. Patient is currently awake alert oriented answering questions appropriately. Physical exam notable for rhonchi R>L, no wheezing or crackles. Heart sounds regular. Abdomen soft nontender nondistended, with positive bowel sounds. No significant lower extremity edema noted. Patient is moving extremities spontaneously and without difficulty. Huerta catheter was placed in the ED, due to concern for elevated creatinine at 2.9, concern for urinary retention. However after Huerta was placed it seems like only 100 cc of urine was drained. We will continue antibiotics for now, continue to monitor cultures for results. Patient is diarrhea, will obtain stool studies. We will discuss further with nephrology given acutely worsening kidney function. Dio Díaz MD (1) Pneumonia Laterality: unspecified laterality Lung location: unspecified part of lung Pneumonia type: due to unspecified organism Qualified Code(s): J18.9 - Pneumonia, unspecified organism
--- NOTE | 2021-07-29 17:34 | CT Scan Report ---
CT chest diagnostic wo con CT DOSE: 499.35 mGy.cm CLINICAL HISTORY: 81 years-old Male with hypoxia. Acute hypoxia TECHNIQUE: Multiaxial CT images of the chest were performed without contrast. A dose lowering techni que was utilized adhering to the principles of ALARA. COMPARISON: CT abdomen and pelvis of same day, CTA chest 03/15/2021 FINDINGS: Unremarkable thyroid. 1.2 cm right paratracheal lymph node on image 100. Subcarinal lymph n odes measure up to 10 mm. These have increased in size from the March study. Mildly prominent lymph no kayleen adjacent to the distal esophagus and within the celiac trunk. The heart is normal in size. No per icardial effusion. Extensive coronary artery calcifications. Atherosclerosis of the aorta without ane urysm. No pneumothorax, pleural effusion or overt pulmonary edema. Unchanged 6 mm groundglass nodule of the right lung apex on image 29. Stable 9 mm groundglass nodule of the right upper lobe on image 81. Stab le 5 mm groundglass nodule of the left lung apex on image 74. 6 mm fissural groundglass nodular densi ty of the posterior right upper lobe on image 115 is new from prior. Several of the nodular densities described on the 03/15/2021 study have resolved in the interval. There are new patchy bibasilar tree-i n-bud and nodular consolidative opacities of the lung bases. Mild bronchial wall thickening. Subpleur al 2.1 cm nodular consolidative opacity of the posterior basal segment right lower lobe on image 209 is new from the March 15, 2021 study. Central airways appear patent. 5 mm subpleural nodule of the righ t upper lobe on image 79 is stable No acute process of the imaged upper abdomen. Unremarkable soft tissues. No acute fracture. IMPRESSION: 1. Mild patchy bibasilar tree-in-bud airspace opacities are suggestive of a nonspecific infectious or inflammatory pneumonitis. 2. 2.1 cm irregular nodular consolidative opacity of the posterior basal segment right lower lobe is new from the March 15, 2021 study and also likely infectious or inflammatory. A 3 month follow-up chest CT is needed to document resolution. 3. Mild mediastinal adenopathy, likely reactive. 4. Waxing and waning pulmonary nodules as above include stable groundglass nodules measuring up to 9 mm within the right upper lobe with a new 6 mm nodule of the posterior segment right upper lobe. Atte ntion at follow-up recommended. ACT 112: Negative or not required by law. Electronically signed by: aMti Argueta M.D. 07/29/2021 5:33 PM
[2021-07-29] MEDS ORDERED: ALUMINUM/MAGNESIUM SUSP 30 ML UDC PO PRN (18:55)
[2021-07-29] MEDS ORDERED: MAGNESIUM HYDROXIDE SUSP 30 ML UDC PO PRN (18:55)
[2021-07-29] MEDS ORDERED: GLUCAGON FOR INJ 1 MG VIAL SQ PRN (18:55)
[2021-07-29] MEDS ORDERED: GLUCOSE 40% GEL 15 GM TUBE PO PRN (18:55)
[2021-07-29] MEDS ORDERED: POLYETHYLENE (MIRALAX) 17 GM PACK PO PRN (18:55)
[2021-07-29] MEDS ORDERED: DEXTROSE 50% 50 ML SYRINGE IV PRN (18:55)
[2021-07-29] MEDS ORDERED: GLUCOSE 10 TABS/TUBE PO PRN (18:55)
[2021-07-29] MEDS ORDERED: ONDANSETRON INJ 2 MG/ML 2 ML VIAL IV PRN (18:55)
[2021-07-29] MEDS ORDERED: ACETAMINOPHEN 325 MG TAB PO PRN (18:55)
[2021-07-29] MEDS ORDERED: CARBOHYDRATES FOR HYPOGLYCEMIA PO PRN (18:55)
[2021-07-29] MEDS ORDERED: XOPENEX/ATROVENT 0.63mg/0.5MG NEB COMBO NEB SCH (19:00)
[2021-07-29] MEDS: IPRATROPIUM BROMIDE NEB SOLN 0.02% 2.5 ML VIAL INH SCH (20:33)
[2021-07-29] MEDS: LEVALBUTEROL HCL 0.63 MG/3 ML NEB NEB SCH (20:34)
[2021-07-29] MEDS: SODIUM CHLORIDE 0.9% 1000ML 1,000 ML IV SCH (20:52)
[2021-07-29 21:23] LABS: Protein Creatinine Ratio Urine 0.7 (0-0.2); Total Protein Urine Random 107.8 mg/dl (0-11.9)
[2021-07-29] MEDS: CEROVITE ADV FORMULA TAB PO SCH (22:20)
[2021-07-29] MEDS: HEPARIN SOD 5,000 UNIT/0.5 ML VIAL SQ SCH (22:20)
[2021-07-29] MEDS: ATORVASTATIN 40 MG TAB PO SCH (22:20)
[2021-07-29] MEDS: DOXYCYCLINE HYCLATE 100 MG CAP PO SCH (22:20)
[2021-07-29] MEDS: INSULIN GLARGINE SOLOSTAR 100 UNITS/ML 3 ML PEN SC SCH (22:21)
[2021-07-29] MEDS: TAMSULOSIN HCL 0.4 MG CAP PO SCH (22:21)
[2021-07-29] MEDS: INSULIN ASPART 100 UNITS/ML 3 ML PEN SC SCH ×2 (22:23→22:34)
[2021-07-30] MEDS: LEVALBUTEROL HCL 0.63 MG/3 ML NEB NEB SCH ×4 (00:22→19:40)
[2021-07-30] MEDS: IPRATROPIUM BROMIDE NEB SOLN 0.02% 2.5 ML VIAL INH SCH ×4 (00:22→19:40)
[2021-07-30] MEDS ORDERED: COUGH DROP (SUGAR FREE) LOZ 24 LOZ/1 BOX BUCCAL ONE (03:45)
[2021-07-30] MEDS: HEPARIN SOD 5,000 UNIT/0.5 ML VIAL SQ SCH ×3 (06:22→21:10)
[2021-07-30] MEDS: SODIUM CHLORIDE 0.9% 1000ML 1,000 ML IV SCH ×3 (06:22→22:37)
[2021-07-30 07:03] LABS: Basophils # (auto) 0.04 K/uL (0-0.2); Basophils % (auto) 0.2 %; Eosinophils # (auto) 6.22 K/uL (0-0.5); Eosinophils % (auto) 37.7 %; Immature Granulocytes # (auto) 0.05 K/uL (0.00-0.02); Immature Granulocytes % (auto) 0.3 %; Lymphocytes # (auto) 2.02 K/uL (1.2-3.4); Lymphocytes % (auto) 12.2 %; Mean Corpuscular Hemoglobin 30.4 pg (25-34); Mean Corpuscular Hgb Conc 34.2 g/dL (32-36); Mean Corpuscular Volume 88.8 fL (80-100); Mean Platelet Volume 10.4 fL (7.4-10.4); Monocytes # (auto) 0.98 K/uL (0.11-0.59); Monocytes % (auto) 5.9 %; Neutrophils # (auto) 7.18 K/uL (1.4-6.5); Neutrophils % (auto) 43.7 %; Platelet Count 198 K/uL (130-400); RDW Coefficient of Variation 14.3 % (11.5-14.5); RDW Standard Deviation 46.4 fL (36.4-46.3); Red Blood Count 4.28 M/uL (4.7-6.1); White Blood Count 16.49 K/uL (4.8-10.8)
[2021-07-30 07:48] LABS: Albumin Globulin Ratio 0.6 (0.9-2); Albumin Level 2.3 gm/dl (3.4-5.0); BUN Creatinine Ratio 20.7 (10-20); Bilirubin,Total 0.5 mg/dl (0.2-1); Calcium 8.7 mg/dl (8.5-10.1); Creatinine Clr Calc Pharmacy 43.6 ml/min; Est GFR (African American) 53.2 ml/min; Est GFR (Non-African American) 45.9 ml/min; Estimated Average Glucose 140 mg/dl; Globulin 4.1 gm/dl (2.5-4.0); Hemoglobin A1C 6.5 % (4.5-5.6); Potassium 4.3 mmol/L (3.5-5.1); Total Protein 6.4 gm/dl (6.4-8.2)
[2021-07-30] MEDS: INSULIN ASPART 100 UNITS/ML 3 ML PEN SC SCH ×4 (08:51→21:09)
[2021-07-30] MEDS: INSULIN GLARGINE SOLOSTAR 100 UNITS/ML 3 ML PEN SC SCH ×2 (08:53→21:08)
[2021-07-30] MEDS: DOXYCYCLINE HYCLATE 100 MG CAP PO SCH ×2 (08:54→21:11)
[2021-07-30] MEDS: CEROVITE ADV FORMULA TAB PO SCH ×2 (08:54→21:11)
[2021-07-30] MEDS: LORATADINE 10 MG TAB PO SCH (08:54)
[2021-07-30] MEDS: METOPROLOL SUCC 50MG EXT REL TAB PO SCH (08:54)
[2021-07-30] MEDS: MONTELUKAST SODIUM 10 MG TABLET PO SCH (08:54)
[2021-07-30] MEDS: FLUTICASONE PROPIONATE NA SPR 16 GM BTL SCH (08:55)
[2021-07-30] MEDS: cefTRIAXone SODIUM 2,000 MG in DEXTROSE 5% 50 ML IV SCH (09:26)
--- NOTE | 2021-07-30 15:32 | Hospitalist Progress Note ---
Date of Service July 30, 2021 Assessment & Plan (1) Sepsis: (2) BRANDI (acute kidney injury): (3) Hypoxia: (4) Pneumonia: (5) UTI (urinary tract infection): (6) Elevated troponin: (7) Diabetes type 2, controlled: (8) Hypertension: (9) COPD (chronic obstructive pulmonary disease): Plan: This is a 81-year-old male who has significant past medical history of T2DM, HTN, HLD, COPD, chronic LBBB, mediastinal adenopathy with lung nodules followed by pulmonology, nonalcoholic fatty liver disease, CKD stage II, BPH, history of Covid pneumonia who presents to ED with at bedside secondary to upper respiratory symptoms x1 week and diarrhea x1 day. Sepsis - meets criteria per current CMS guidelines for leukocytosis, tachycardia and evidence of infection possible UTI and pneumonia Bilateral pneumonitis UTI Hypoxia Admit to telemetry IV antibiotics Rocephin 2 g daily, oral doxycycline 100 mg twice daily Blood and urine cultures pending Lactic acid WNL, procalcitonin 0.[address] without contrast (pt did have outpt chest CT 06/05 f/u for pulm nodules showed stable pulm nodules, new ground glass density in RLL, 8mm) sputum culture if able to obtain pulmonary toilet with Xopenex/ipratropium nebs, incentive spirometry, flutter valve Speech evaluation to eval for aspiration Patient follows with pulmonology Dr. Cobb as outpatient, low threshold for pulmonary consultation Continue oxygen supplementation as needed, humidified oxygen ordered 07/30 - currently pt on RA satting 93% BRANDI - unknown etiology at time of admission Baseline creatinine 0.9 on 05/23/2021 BUN/creatinine 34 and 2.94 Monk catheter placed - only 100ml UOP thus far, CT does not demonstrate hydro so less likely post renal Consult nephrology Strict I's and O's Urine studies ordered IVF hold metformin and lisinopril, avoid nephrotoxic agents 07/30 - Cr improved to 1.4, remove Monk Elevated troponin Chronic left on branch block EKG unchanged, patient without chest pain Cycle troponins Possibly in setting of demand ischemia due to BRANDI and infection Follows [facility] cardiology for chronic left bundle branch block, hypertension Last echocardiogram 09/21/2019 revealed EF 50%, grade 1 diastolic dysfunction Elevated LFTs AST 39, ALT 97, alk phos 525, total bilirubin 0.6 Known history of fatty liver disease Monitor No abdominal pain Diarrhea Patient reports having 3 loose stools on the day of admission -stool studies ordered however patient had no bowel movement since admission T2DM, controlled Last A1c 6.8 on 02/2021 Obtain A1c in a.m. Hold Metformin Lantus/NovoLog per protocol Hypertension Blood pressure stable, hold lisinopril due to BRANDI Continue metoprolol BPH on flomax Prostamegaly seen on CT No evidence of acute obstruction, Monk catheter placed in ER - reportedly drained only 100 mL output Will hold on urology consult for now, remove monk now Nephrolithiasis On CT There is a 9 mm calculus in the left renal pelvis seen on image and additional 3 mm nonobstructing calculus is seen in the left lower pole. DVT ppx: SQ Heparin FULL CODE PCP: Dr. Dupree Admission and Anticipated Discharge Date Admission Date: July 29, 2021 Subjective Patient seen in follow-up of BRANDI, hypoxia, possible pneumonia Currently sitting up in bed, in no acute distress. He is currently on room air, pt's at the bedside and updated Monk placed and drains clear yellow urine, discussed with nephrology okay to discontinue Monk Creatinine down to 1.4 today patient is feeling better overall Denies fevers chills, chest pain shortness of breath, abdominal pain, nausea vomiting Also reports no stools since he came to hospital (stool studies uncollected) Review of Systems Review of Systems: All systems reviewed & are unremarkable except as noted in Subjective Physical Exam Physical Exam: Constitutional: WD/WN, M in NAD, sitting up in bed, conversing easily, on RA satting 93% Head: Normocephalic, Atraumatic Eyes: PERRL, EOMI, conjunctivae normal, anicteric sclerae ENMT: external ear and nose normal, oropharynx normal Neck: normal visual inspection Respiratory: normal respiratory effort, lungs clear to auscultation, minimal right middle and lower lobe positive rhonchi (exam improved from previous), no wheezing or crackles Cardiovascular: RRR, no murmur, no edema Vessels: no JVD or carotid bruit Chest: normal inspection of chest Abdomen: normal bowel sounds, soft, nontender Musculoskeletal:extremities motor strength 5/5 Skin: no rashes, warm and dry normal turgor Neurologic: PERRL, EOMI, no face palsy, speech fluent, moves all extremities Psychiatric: A+Ox3, euthymic affect : Positive Monk catheter draining yellow urine Results & Data Results & Data ([facility]) Vital Signs (Past 12 Hours) Vital Signs Temp Pulse Pulse Resp BP BP Pulse Ox 07/30/21 15:18 36.8 C 92 H 19 131/67 93 07/30/21 13:25 76 13 91 07/30/21 11:25 36.8 C 88 19 108/64 92 07/30/21 07:53 86 07/30/21 07:49 36.7 C 108 H 19 133/61 92 07/30/21 07:10 68 16 92 07/30/21 05:05 36.8 C 119 H 142/64 H 93 Laboratory Results 07/30/21 07/30/21 07/30/21 Range/Units 11:11 07:29 06:43 WBC (4.8-10.8) K/uL RBC (4.7-6.1) M/uL Hgb (14.0-18.0) g/dL Hct (42-52) % MCV (80-100) fL MCH (25-34) pg MCHC (32-36) g/dL RDW Std Deviation (36.4-46.3) fL RDW Coeff of Norma (11.5-14.5) % Plt Count (130-400) K/uL MPV (7.4-10.4) fL Immature Gran % (Auto) % Neut % (Auto) % Lymph % (Auto) % Warren % (Auto) % Eos % (Auto) % Baso % (Auto) % Neut # (Auto) (1.4-6.5) K/uL Lymph # (Auto) (1.2-3.4) K/uL Warren # (Auto) (0.11-0.59) K/uL Eos # (Auto) (0-0.5) K/uL Baso # (Auto) (0-0.2) K/uL Immature Gran # (Auto) (0.00-0.02) K/uL Sodium (136-145) mmol/L Potassium (3.5-5.1) mmol/L Chloride (98-107) mmol/L Carbon Dioxide (21-32) mmol/L Anion Gap (3-11) BUN (7-18) mg/dl Creatinine (0.6-1.4) mg/dl Est Cr Clr Drug Dosing ml/min Est GFR ( Amer) ml/min Est GFR (Non-Af Amer) ml/min BUN/Creatinine Ratio (10-20) Glucose (70-99) mg/dl POC Glucose 177 H 146 H (70-99) mg/dl Estimat Average Glucose mg/dl Hemoglobin A1c (4.5-5.6) % Calcium (8.5-10.1) mg/dl Phosphorus (2.5-4.9) mg/dl Magnesium (1.8-2.4) mg/dl Total Bilirubin (0.2-1) mg/dl AST (15-37) U/L ALT (12-78) U/L Alkaline Phosphatase (45-117) U/L Troponin I (0-0.045) ng/ml Total Protein (6.4-8.2) gm/dl Albumin (3.4-5.0) gm/dl Globulin (2.5-4.0) gm/dl Albumin/Globulin Ratio (0.9-2) Lipase (73-393) U/L Procalcitonin 0.56 H (0-0.5) ng/ml Urine Osmolality (500-800) mOsm/kg Ur Random Creatinine mg/dl U Random Total Protein (0-11.9) mg/dl Ur Random Sodium mmol/L Protein/Creatinin Ratio (0-0.2) 07/30/21 07/30/21 07/30/21 Range/Units 06:43 06:43 06:43 WBC 16.49 H (4.8-10.8) K/uL RBC 4.28 L (4.7-6.1) M/uL Hgb 13.0 L (14.0-18.0) g/dL Hct 38.0 L (42-52) % MCV 88.8 (80-100) fL MCH 30.4 (25-34) pg MCHC 34.2 (32-36) g/dL RDW Std Deviation 46.4 H (36.4-46.3) fL RDW Coeff of Norma 14.3 (11.5-14.5) % Plt Count 198 (130-400) K/uL MPV 10.4 (7.4-10.4) fL Immature Gran % (Auto) 0.3 % Neut % (Auto) 43.7 % Lymph % (Auto) 12.2 % Warren % (Auto) 5.9 % Eos % (Auto) 37.7 % Baso % (Auto) 0.2 % Neut # (Auto) 7.18 H (1.4-6.5) K/uL Lymph # (Auto) 2.02 (1.2-3.4) K/uL Warren # (Auto) 0.98 H (0.11-0.59) K/uL Eos # (Auto) 6.22 H (0-0.5) K/uL Baso # (Auto) 0.04 (0-0.2) K/uL Immature Gran # (Auto) 0.05 H (0.00-0.02) K/uL Sodium 137 (136-145) mmol/L Potassium 4.3 (3.5-5.1) mmol/L Chloride 107 (98-107) mmol/L Carbon Dioxide 21 (21-32) mmol/L Anion Gap 9.0 (3-11) BUN 30 H (7-18) mg/dl Creatinine 1.43 H D (0.6-1.4) mg/dl Est Cr Clr Drug Dosing 43.6 ml/min Est GFR ( Amer) 53.2 ml/min Est GFR (Non-Af Amer) 45.9 ml/min BUN/Creatinine Ratio 20.7 H (10-20) Glucose 146 H (70-99) mg/dl POC Glucose (70-99) mg/dl Estimat Average Glucose 140 mg/dl Hemoglobin A1c 6.5 H (4.5-5.6) % Calcium 8.7 (8.5-10.1) mg/dl Phosphorus 3.0 (2.5-4.9) mg/dl Magnesium 2.0 (1.8-2.4) mg/dl Total Bilirubin 0.5 (0.2-1) mg/dl AST 26 (15-37) U/L ALT 68 (12-78) U/L Alkaline Phosphatase 416 H (45-117) U/L Troponin I (0-0.045) ng/ml Total Protein 6.4 (6.4-8.2) gm/dl Albumin 2.3 L (3.4-5.0) gm/dl Globulin 4.1 H (2.5-4.0) gm/dl Albumin/Globulin Ratio 0.6 L (0.9-2) Lipase (73-393) U/L Procalcitonin (0-0.5) ng/ml Urine Osmolality (500-800) mOsm/kg Ur Random Creatinine mg/dl U Random Total Protein (0-11.9) mg/dl Ur Random Sodium mmol/L Protein/Creatinin Ratio (0-0.2) 07/29/21 07/29/21 07/29/21 Range/Units Unknown Unknown 23:09 WBC (4.8-10.8) K/uL RBC (4.7-6.1) M/uL Hgb (14.0-18.0) g/dL Hct (42-52) % MCV (80-100) fL MCH (25-34) pg MCHC (32-36) g/dL RDW Std Deviation (36.4-46.3) fL RDW Coeff of Norma (11.5-14.5) % Plt Count (130-400) K/uL MPV (7.4-10.4) fL Immature Gran % (Auto) % Neut % (Auto) % Lymph % (Auto) % Warren % (Auto) % Eos % (Auto) % Baso % (Auto) % Neut # (Auto) (1.4-6.5) K/uL Lymph # (Auto) (1.2-3.4) K/uL Warren # (Auto) (0.11-0.59) K/uL Eos # (Auto) (0-0.5) K/uL Baso # (Auto) (0-0.2) K/uL Immature Gran # (Auto) (0.00-0.02) K/uL Sodium (136-145) mmol/L Potassium (3.5-5.1) mmol/L Chloride (98-107) mmol/L Carbon Dioxide (21-32) mmol/L Anion Gap (3-11) BUN (7-18) mg/dl Creatinine (0.6-1.4) mg/dl Est Cr Clr Drug Dosing ml/min Est GFR ( Amer) ml/min Est GFR (Non-Af Amer) ml/min BUN/Creatinine Ratio (10-20) Glucose (70-99) mg/dl POC Glucose (70-99) mg/dl Estimat Average Glucose mg/dl Hemoglobin A1c (4.5-5.6) % Calcium (8.5-10.1) mg/dl Phosphorus (2.5-4.9) mg/dl Magnesium (1.8-2.4) mg/dl Total Bilirubin (0.2-1) mg/dl AST (15-37) U/L ALT (12-78) U/L Alkaline Phosphatase (45-117) U/L Troponin I 0.146 H* (0-0.045) ng/ml Total Protein (6.4-8.2) gm/dl Albumin (3.4-5.0) gm/dl Globulin (2.5-4.0) gm/dl Albumin/Globulin Ratio (0.9-2) Lipase (73-393) U/L Procalcitonin (0-0.5) ng/ml Urine Osmolality 573 (500-800) mOsm/kg Ur Random Creatinine 153.0 mg/dl U Random Total Protein 107.8 H (0-11.9) mg/dl Ur Random Sodium 91 mmol/L Protein/Creatinin Ratio 0.7 H (0-0.2) 07/29/21 07/29/21 07/29/21 Range/Units 20:24 17:41 17:41 WBC (4.8-10.8) K/uL RBC (4.7-6.1) M/uL Hgb (14.0-18.0) g/dL Hct (42-52) % MCV (80-100) fL MCH (25-34) pg MCHC (32-36) g/dL RDW Std Deviation (36.4-46.3) fL RDW Coeff of Norma (11.5-14.5) % Plt Count (130-400) K/uL MPV (7.4-10.4) fL Immature Gran % (Auto) % Neut % (Auto) % Lymph % (Auto) % Warren % (Auto) % Eos % (Auto) % Baso % (Auto) % Neut # (Auto) (1.4-6.5) K/uL Lymph # (Auto) (1.2-3.4) K/uL Warren # (Auto) (0.11-0.59) K/uL Eos # (Auto) (0-0.5) K/uL Baso # (Auto) (0-0.2) K/uL Immature Gran # (Auto) (0.00-0.02) K/uL Sodium (136-145) mmol/L Potassium (3.5-5.1) mmol/L Chloride (98-107) mmol/L Carbon Dioxide (21-32) mmol/L Anion Gap (3-11) BUN (7-18) mg/dl Creatinine (0.6-1.4) mg/dl Est Cr Clr Drug Dosing ml/min Est GFR ( Amer) ml/min Est GFR (Non-Af Amer) ml/min BUN/Creatinine Ratio (10-20) Glucose (70-99) mg/dl POC Glucose 158 H (70-99) mg/dl Estimat Average Glucose mg/dl Hemoglobin A1c (4.5-5.6) % Calcium (8.5-10.1) mg/dl Phosphorus (2.5-4.9) mg/dl Magnesium (1.8-2.4) mg/dl Total Bilirubin (0.2-1) mg/dl AST (15-37) U/L ALT (12-78) U/L Alkaline Phosphatase (45-117) U/L Troponin I 0.135 H* (0-0.045) ng/ml Total Protein (6.4-8.2) gm/dl Albumin (3.4-5.0) gm/dl Globulin (2.5-4.0) gm/dl Albumin/Globulin Ratio (0.9-2) Lipase 283 (73-393) U/L Procalcitonin (0-0.5) ng/ml Urine Osmolality (500-800) mOsm/kg Ur Random Creatinine mg/dl U Random Total Protein (0-11.9) mg/dl Ur Random Sodium mmol/L Protein/Creatinin Ratio (0-0.2) Medications Administered Current Inpatient Medications Acetaminophen (Acetaminophen 325 Mg Tab) 650 mg PO Q4H PRN PRN Reason: Pain or Fever Stop: 08/28/21 18:54 Last Admin: 07/29/21 23:02 Dose: 650 mg Documented by: Al Hydrox/Mg Hydrox/Simethicone (Aluminum/Magnesium Susp 30 Ml Udc) 15 ml PO Q4H PRN PRN Reason: Dyspepsia Stop: 08/28/21 18:54 Atorvastatin Calcium (Atorvastatin 40 Mg Tab) 40 mg PO QPM [facility]OGERS Stop: 08/28/21 20:59 Last Admin: 07/29/21 22:20 Dose: 40 mg Documented by: Dextrose (Dextrose 50% 50 Ml Syringe) 25 - 50 ml IV UD PRN; Protocol PRN Reason: Hypoglycemia Protocol Stop: 08/28/21 18:54 Doxycycline Hyclate (Doxycycline Hyclate 100 Mg Cap) 100 mg PO BID ROGERS Stop: 08/05/21 20:59 Last Admin: 07/30/21 08:54 Dose: 100 mg Documented by: Fluticasone Propionate (Fluticasone Propionate Na Spr 16 Gm Btl) 2 sprays NA DAILY [facility]OGERS Stop: 08/29/21 08:59 Last Admin: 07/30/21 08:55 Dose: 2 sprays Documented by: Glucagon (Glucagon For Inj 1 Mg Vial) 1 mg SQ UD PRN; Protocol PRN Reason: Hypoglycemia Protocol Stop: 08/28/21 18:54 Glucose (Glucose 10 Tabs/Tube) 4 - 8 tabs PO UD PRN; Protocol PRN Reason: Hypoglycemia Protocol Stop: 08/28/21 18:54 Glucose (Glucose 40% Gel 15 Gm Tube) 15 - 30 gm PO UD PRN; Protocol PRN Reason: Hypoglycemia Protocol Stop: 08/28/21 18:54 Heparin Sodium (Porcine) (Heparin Sod 5,000 Unit/0.5 Ml Vial) 5,000 units SQ Q8 [facility]ERS Stop: 08/28/21 21:59 Last Admin: 07/30/21 13:40 Dose: 5,000 units Documented by: Ceftriaxone Sodium 2,000 mg/ (Dextrose) 50 mls @ 100 mls/hr IV Q24H [facility]OGERS; Protocol Stop: 08/09/21 08:59 Last Infusion: 07/30/21 09:56 Dose: Infused Documented by: Sodium Chloride (Nss 1000ml) 1,000 mls @ 100 mls/hr IV .Q10H [facility]OGERS Stop: 08/28/21 18:54 Last Admin: 07/30/21 13:41 Dose: 100 mls/hr Documented by: Insulin Aspart (Insulin Aspart 100 Units/Ml 3 Ml Pen) 0 units SC ACHS [facility]OGERS Stop: 08/28/21 18:54 Last Admin: 07/30/21 16:54 Dose: 4 units Documented by: Insulin Glargine (Insulin Glargine Solostar 100 Units/Ml 3 Ml Pen) 0 units SC BID [facility]; Protocol Stop: 08/28/21 20:59 Last Admin: 07/30/21 08:53 Dose: 5 units Documented by: Ipratropium [place] (Ipratropium [place] Neb Soln 0.02% 2.5 Ml Vial) 0.5 mg INH Q6R [facility] Stop: 08/28/21 19:29 Last Admin: 07/30/21 13:23 Dose: 0.5 mg Documented by: Levalbuterol HCl (Levalbuterol Hcl 0.63 Mg/3 Ml Neb) 0.63 mg NEB Q6R [facility] Stop: 08/28/21 19:29 Last Admin: 07/30/21 13:23 Dose: 0.63 mg Documented by: Loratadine (Loratadine 10 Mg Tab) 10 mg PO DAILY [facility] Stop: 08/29/21 08:59 Last Admin: 07/30/21 08:54 Dose: 10 mg Documented by: Magnesium Hydroxide (Magnesium Hydroxide Susp 30 Ml Udc) 30 ml PO Q12H PRN PRN Reason: Constipation Stop: 08/28/21 18:54 Metoprolol Succinate (Metoprolol Succ 50mg Ext Rel Tab) 100 mg PO DAILY [facility] Stop: 08/29/21 08:59 Last Admin: 07/30/21 08:54 Dose: 100 mg Documented by: Miscellaneous (Carbohydrates For Hypoglycemia ) 15 - 30 gm PO UD PRN PRN Reason: Hypoglycemia Protocol Stop: 08/28/21 18:54 Montelukast Sodium (Montelukast Sodium 10 Mg Tablet) 10 mg PO DAILY [facility] Stop: 08/29/21 08:59 Last Admin: 07/30/21 08:54 Dose: 10 mg Documented by: Multivitamins/Minerals (Cerovite Adv Formula Tab) 1 tab PO BID [facility] Stop: 08/28/21 20:59 Last Admin: 07/30/21 08:54 Dose: 1 tab Documented by: Ondansetron HCl (Ondansetron Inj 2 Mg/Ml 2 Ml Vial) 4 mg IV Q6H PRN PRN Reason: Nausea Stop: 08/28/21 18:54 Polyethylene Glycol (Polyethylene (Miralax) 17 Gm Pack) 17 gm PO DAILY PRN PRN Reason: Constipation Stop: 08/28/21 18:54 Tamsulosin HCl (Tamsulosin Hcl 0.4 Mg Cap) 0.4 mg PO QPM [facility] Stop: 08/28/21 20:59 Last Admin: 07/29/21 22:21 Dose: 0.4 mg Documented by: (1) Pneumonia Laterality: unspecified laterality Lung location: unspecified part of lung Pneumonia type: due to unspecified organism Qualified Code(s): J18.9 - Pneumonia, unspecified organism
[2021-07-30 18:20] LABS: BUN Creatinine Ratio 16.4 (10-20); Calcium 9.1 mg/dl (8.5-10.1); Est GFR (African American) 52.3 ml/min; Est GFR (Non-African American) 45.2 ml/min; Magnesium 1.7 mg/dl (1.8-2.4); Potassium 4.2 mmol/L (3.5-5.1)
[2021-07-30 18:32] LABS: Phosphorus 2.8 mg/dl (2.5-4.9); Troponin I 0.087 ng/ml (0-0.045)
--- NOTE | 2021-07-30 19:58 | Consultation Report ---
NEPHROLOGY CONSULTATION NOTE DATE OF SERVICE: 07/30/2021 REASON FOR CONSULTATION: Acute renal failure. HISTORY OF PRESENT ILLNESS: The patient is an 81-year-old male with a history of type 2 diabetes, hy pertension, hyperlipidemia, COPD, chronic left bundle branch block, mediastinal adenopathy with lung nodules - followed by pulmonary, nonalcoholic fatty liver disease, BPH, history of COVID pneumonia in 10/2020 who presented to the Emergency Department secondary to upper respiratory tract symptoms for 1 week and diarrhea for the last few days. He was also getting very weak and felt he had some shortn ess of breath. He was admitted for COVID pneumonia earlier this year as well as another admission fo r pneumonia and as a result, he and his got very concerned and presented to the Emergency Depart ment. Renal ultrasound was done and did not show hydronephrosis. His creatinine was elevated at 2.94 , significantly higher than his most recent baseline of 0.9. Since admission, the patient received I V fluid. Lisinopril and metformin were held, and with that, his creatinine is already down to 1.43. He is already feeling significantly better and actually wants to go home. His vital signs are stabl e. PAST MEDICAL AND SURGICAL HISTORY: As detailed in HPI. Also includes history of cataract surgery, c holecystectomy. ALLERGIES: None. MEDICATIONS: Home medication list included metoprolol, Flomax, atorvastatin, lisinopril 10 daily, mo ntelukast 10 daily, Claritin, metformin, vitamins. FAMILY HISTORY: Negative for renal disease or dialysis. SOCIAL HISTORY: Former smoker. No alcohol. , lives with his . No oxygen. No assistive walking devices. REVIEW OF SYSTEMS: As detailed in HPI. Positive review of system included weakness, upper respirato ry tract infection symptoms, diarrhea, poor appetite, shortness of breath. Otherwise, 12 systems rev iewed and negative. PHYSICAL EXAMINATION: VITAL SIGNS: Include blood pressure 133/61, pulse rate 86, temperature 36.7, oxygen saturation 92% o n room air. GENERAL: Elderly white male who does not appear to be in any respiratory distress at this time. He is awake, alert, conversing fully, normal accurate speech. HEENT: Normocephalic, atraumatic. NECK: Supple. No jugular venous distention. CHEST: Bilateral decreased breath sound at the bases, especially at the right lung. Occasional expi ratory wheezing. CARDIOVASCULAR: Regular rate and rhythm, no edema. No murmur. ABDOMEN: Soft, nontender. EXTREMITIES: Show no edema. NEUROLOGIC: Awake, alert, oriented, moving all 4 extremities. GENITOURINARY: He has a Huerta catheter in place. LABORATORY TEST: Baseline creatinine 0.9, admission creatinine 2.94, this morning creatinine 1.43. This morning, BUN is 30, sodium 137, potassium 4.3. WBC count 16,000, hemoglobin 13, platelet count 198. Urine on admission showed trace blood, 1+ protein, lots of hyaline casts and epithelial cells, WBCs, RBCs. CT abdomen and pelvis did not show any hydronephrosis. There was some mention of left-sided nephroli thiasis. CT chest shows mild patchy bibasilar tree-in-bud airspace opacities suggestive of inflammat ory pneumonitis. ASSESSMENT AND PLAN: An 81-year-old male admitted yesterday because of upper respiratory tract infec tion symptoms, shortness of breath, weakness, nausea, diarrhea and poor appetite. He was found to stark ve acute renal failure with a peak creatinine of 2.94, up from baseline of 0.9 and as a result, I was consulted. 1. Acute renal failure: Creatinine went up from 0.9 to 2.94, so it does qualify as acute renal fail ure. It has improved very rapidly and is down to 1.43 in less than 12-hour time with the use of IV f luid. This confirms this is prerenal in etiology and no further investigation is needed. I will con parisue to hold metformin and lisinopril for the time being. Continue IV fluid while he is inpatient. I expect the kidney function to be completely normal by tomorrow. From renal standpoint, he is stab le for discharge. 2. Pneumonia: He has complicated pulmonary issues for the last 9 months. We will defer to primary team and pulmonary. Thank you very much for the consult. Job ID: [id number]
[2021-07-30] MEDS: ATORVASTATIN 40 MG TAB PO SCH (21:11)
[2021-07-30] MEDS: TAMSULOSIN HCL 0.4 MG CAP PO SCH (21:11)
[2021-07-31] MEDS: LEVALBUTEROL HCL 0.63 MG/3 ML NEB NEB SCH ×3 (00:35→12:46)
[2021-07-31] MEDS: IPRATROPIUM BROMIDE NEB SOLN 0.02% 2.5 ML VIAL INH SCH ×3 (00:35→12:46)
[2021-07-31] MEDS: HEPARIN SOD 5,000 UNIT/0.5 ML VIAL SQ SCH ×3 (05:42→21:08)
[2021-07-31 05:46] LABS: Hematocrit (blood only) 37.7 % (42-52); Hemoglobin 12.8 g/dL (14.0-18.0); Mean Corpuscular Hemoglobin 30.5 pg (25-34); Mean Corpuscular Volume 89.8 fL (80-100); Mean Platelet Volume 10.4 fL (7.4-10.4); Platelet Count 213 K/uL (130-400); RDW Coefficient of Variation 14.3 % (11.5-14.5); RDW Standard Deviation 47.3 fL (36.4-46.3); White Blood Count 15.67 K/uL (4.8-10.8)
[2021-07-31 06:16] LABS: BUN Creatinine Ratio 16.2 (10-20); Calcium 8.9 mg/dl (8.5-10.1); Creatinine Clr Calc Pharmacy 56.7 ml/min; Est GFR (African American) 73.1 ml/min; Est GFR (Non-African American) 63.1 ml/min; Magnesium 1.7 mg/dl (1.8-2.4); Potassium 4.2 mmol/L (3.5-5.1)
[2021-07-31] MEDS: INSULIN ASPART 100 UNITS/ML 3 ML PEN SC SCH ×4 (07:47→20:53)
[2021-07-31] MEDS: INSULIN GLARGINE SOLOSTAR 100 UNITS/ML 3 ML PEN SC SCH ×2 (07:48→21:01)
[2021-07-31] MEDS: FLUTICASONE PROPIONATE NA SPR 16 GM BTL SCH (07:52)
[2021-07-31] MEDS: DOXYCYCLINE HYCLATE 100 MG CAP PO SCH ×2 (07:53→20:16)
[2021-07-31] MEDS: MONTELUKAST SODIUM 10 MG TABLET PO SCH (07:53)
[2021-07-31] MEDS: CEROVITE ADV FORMULA TAB PO SCH ×2 (07:53→20:18)
[2021-07-31] MEDS: METOPROLOL SUCC 50MG EXT REL TAB PO SCH (07:53)
[2021-07-31] MEDS: LORATADINE 10 MG TAB PO SCH (07:53)
[2021-07-31] MEDS: cefTRIAXone SODIUM 2,000 MG in DEXTROSE 5% 50 ML IV SCH (08:43)
[2021-07-31] MEDS: SODIUM CHLORIDE 0.9% 1000ML 1,000 ML IV SCH (09:15)
[2021-07-31] MEDS ORDERED: MAGNESIUM SULFATE / D5W 1 GM/100 ML BAG IV ONE (10:00)
[2021-07-31] MEDS ORDERED: IPRATROPIUM BROMIDE NEB SOLN 0.02% 2.5 ML VIAL INH PRN (14:02)
[2021-07-31] MEDS ORDERED: LEVALBUTEROL HCL 0.63 MG/3 ML NEB NEB PRN (14:03)
--- NOTE | 2021-07-31 18:42 | Hospitalist Progress Note ---
Date of Service July 31, 2021 Assessment & Plan (1) Sepsis: (2) BRANDI (acute kidney injury): (3) Hypoxia: (4) Pneumonia: (5) UTI (urinary tract infection): (6) Elevated troponin: (7) Diabetes type 2, controlled: (8) Hypertension: (9) COPD (chronic obstructive pulmonary disease): Plan: Patient is an 81 yr male with H/O DM II, HTN, HLD, COPD, chronic LBBB, mediastinal adenopathy with lung nodules followed by pulmonology, nonalcoholic fatty liver disease, CKD stage II, BPH, history of Covid pneumonia who presents to ED with at bedside secondary to upper respiratory symptoms x1 week and diarrhea x1 day. Sepsis B/L Pneumonia UTI Hypoxia--Resolved H/O COVID --Chest CT: Mild patchy bibasilar tree-in-bud airspace opacities are suggestive of a nonspecific infectious or inflammatory pneumonitis. 2.1 cm irregular nodular consolidative opacity of the posterior basal segment right lower lobe is new from the March 15, 2021 study and also likely infectious or inflammatory. A 3 month follow-up chest CT is needed to document resolution. Mild mediastinal adenopathy, likely reactive. Waxing and waning pulmonary nodules as above include stable groundglass nodules measuring up to 9 mm within the right upper lobe with a new 6 mm nodule of the posterior segment right upper lobe. . --Blood Cx: No growth to date --Continue IV Rocephin, doxycycline Lactic acid WNL, procalcitonin 0.89 Continue pulmonary hygiene Patient follows with pulmonology Dr. Cobb as outpatient, low threshold for pulmonary consultation Check procalcitonin morning Acute Kidney Injury Baseline creatinine 0.9 on 05/23/2021 Cr: 2.94>1.45>1.10 Received IV fluid Appreciate nephrology input Avoid nephrotoxic agents as able Monitor renal function Elevated troponin Chronic left on branch block EKG unchanged patient denies chest pain Troponin elevation likely demand ischemia due to BRANDI and infection Follows [facility] cardiology for chronic left bundle branch block, hypertension Last echocardiogram 09/21/2019 revealed EF 50%, grade 1 diastolic dysfunction Elevated LFTs Likely due to sepsis Known history of fatty liver disease Diarrhea Patient reports having 3 loose stools on the day of admission Improved Consider stool studies if re-occurs DM II, controlled Last A1c 6.5 Hold Metformin Lantus/NovoLog per protocol Hypertension Hold lisinopril due to BRANDI Continue metoprolol BPH on Flomax Prostatomegaly seen on CT No evidence of acute obstruction, Huerta catheter placed in ER - reportedly drained only 100 mL output Nephrolithiasis On CT There is a 9 mm calculus in the left renal pelvis seen on image and additional 3 mm nonobstructing calculus is seen in the left lower pole. Pulmonary Nodule Noted on CT Follow-up as outpatient DVT px: SQ Heparin Code Status FULL CODE Admission and Anticipated Discharge Date Admission Date: July 29, 2021 Subjective Patient is seen and examined at bedside States feeling much better today Cough, dyspnea improving Denies any chest pain, abdominal pain, nausea, dizziness Offers no other complaints Eager to get discharged Review of Systems Review of Systems: All systems reviewed & are unremarkable except as noted in Subjective Physical Exam Physical Exam: Physical Exam: Vitals signs as noted above General Appearance:Moderately built and nourished, no apparent distress Head: normocephalic, Atraumatic Eyes: normal inspection, EOMI Neck: supple, Trachea midline Respiratory/Chest: Decreased breath sounds, CTA, No accessory muscle use Cardiovascular: S1, S2, No murmur Abdomen/GI:Soft, Non tender, Bowel sounds present Extremities/Musculoskeletal:normal inspection, 1+ B/L LE edema Neurologic/Psych:AAOX3, grossly no focal neurological deficits Skin: normal color, warm Results & Data Results & Data ([facility]) Vital Signs (Past 12 Hours) Vital Signs Temp Pulse Pulse Resp BP BP Pulse Ox 07/31/21 15:50 98 H 07/31/21 14:51 36.7 C 78 16 150/67 H 94 07/31/21 12:48 89 16 93 07/31/21 11:27 36.8 C 75 16 136/71 93 07/31/21 09:58 93 H 07/31/21 07:34 36.6 C 84 18 147/68 H 93 07/31/21 06:40 85 16 92 Laboratory Results Short CBC 07/31/21 Range/Units 05:15 WBC 15.67 H (4.8-10.8) K/uL Hgb 12.8 L (14.0-18.0) g/dL Hct 37.7 L (42-52) % Plt Count 213 (130-400) K/uL [facility] 07/31/21 05:15 Sodium 137 Potassium 4.2 Chloride 108 H Carbon Dioxide 21 BUN 18 Creatinine 1.10 D Glucose 139 H Calcium 8.9 Cardiac Enzymes 07/30/21 Range/Units 17:20 Troponin I 0.087 H* (0-0.045) ng/ml (1) Pneumonia Laterality: unspecified laterality Lung location: unspecified part of lung Pneumonia type: due to unspecified organism Qualified Code(s): J18.9 - Pneumonia, unspecified organism
[2021-07-31] MEDS: ATORVASTATIN 40 MG TAB PO SCH (20:16)
[2021-07-31] MEDS: TAMSULOSIN HCL 0.4 MG CAP PO SCH (20:18)
[2021-08-01 05:43] LABS: Hematocrit (blood only) 40.6 % (42-52); Hemoglobin 13.8 g/dL (14.0-18.0); Mean Corpuscular Hemoglobin 30.3 pg (25-34); Mean Corpuscular Volume 89.2 fL (80-100); Mean Platelet Volume 9.8 fL (7.4-10.4); Platelet Count 225 K/uL (130-400); RDW Coefficient of Variation 14.1 % (11.5-14.5); RDW Standard Deviation 45.9 fL (36.4-46.3); Red Blood Count 4.55 M/uL (4.7-6.1); White Blood Count 16.46 K/uL (4.8-10.8)
[2021-08-01] MEDS: HEPARIN SOD 5,000 UNIT/0.5 ML VIAL SQ SCH (06:01)
[2021-08-01 06:15] LABS: BUN Creatinine Ratio 11.1 (10-20); Calcium 9.4 mg/dl (8.5-10.1); Creatinine Clr Calc Pharmacy 56.5 ml/min; Est GFR (African American) 72.3 ml/min; Est GFR (Non-African American) 62.4 ml/min; Magnesium 1.8 mg/dl (1.8-2.4)
[2021-08-01] MEDS: CEROVITE ADV FORMULA TAB PO SCH (08:07)
[2021-08-01] MEDS: MONTELUKAST SODIUM 10 MG TABLET PO SCH (08:07)
[2021-08-01] MEDS: DOXYCYCLINE HYCLATE 100 MG CAP PO SCH (08:07)
[2021-08-01] MEDS: METOPROLOL SUCC 50MG EXT REL TAB PO SCH (08:08)
[2021-08-01] MEDS: LORATADINE 10 MG TAB PO SCH (08:08)
[2021-08-01] MEDS: INSULIN GLARGINE SOLOSTAR 100 UNITS/ML 3 ML PEN SC SCH (08:08)
[2021-08-01] MEDS: FLUTICASONE PROPIONATE NA SPR 16 GM BTL SCH (08:09)
[2021-08-01] MEDS: INSULIN ASPART 100 UNITS/ML 3 ML PEN SC SCH ×2 (08:10→11:55)
[2021-08-01] MEDS: cefTRIAXone SODIUM 2,000 MG in DEXTROSE 5% 50 ML IV SCH (08:12)
--- NOTE | 2021-08-01 09:37 | Hospitalist Progress Note ---
Date of Service August 01, 2021 Assessment & Plan (1) Sepsis: (2) BRANDI (acute kidney injury): (3) Hypoxia: (4) Pneumonia: (5) UTI (urinary tract infection): (6) Elevated troponin: (7) Diabetes type 2, controlled: (8) Hypertension: (9) COPD (chronic obstructive pulmonary disease): Plan: Patient is an 81 yr male with H/O DM II, HTN, HLD, COPD, chronic LBBB, mediastinal adenopathy with lung nodules followed by pulmonology, nonalcoholic fatty liver disease, CKD stage II, BPH, history of Covid pneumonia who presents to ED with at bedside secondary to upper respiratory symptoms x1 week and diarrhea x1 day. Sepsis B/L Pneumonia UTI Hypoxia--Resolved H/O COVID --Chest CT: Mild patchy bibasilar tree-in-bud airspace opacities are suggestive of a nonspecific infectious or inflammatory pneumonitis. 2.1 cm irregular nodular consolidative opacity of the posterior basal segment right lower lobe is new from the March 15, 2021 study and also likely infectious or inflammatory. A 3 month follow-up chest CT is needed to document resolution. Mild mediastinal adenopathy, likely reactive. Waxing and waning pulmonary nodules as above include stable groundglass nodules measuring up to 9 mm within the right upper lobe with a new 6 mm nodule of the posterior segment right upper lobe. . --Blood Cx: No growth to date --Continue IV Rocephin, doxycycline Lactic acid WNL, procalcitonin 0.89 Continue pulmonary hygiene Patient follows with pulmonology Dr. Cobb as outpatient Procalcitonin normalized 2 step: Did not qualify for oxygen Transition to p.o. antibiotics upon discharge Acute Kidney Injury Baseline creatinine 0.9 on 05/23/2021 Cr: 2.94>1.45>1.1 Received IV fluid Appreciate nephrology input Avoid nephrotoxic agents as able Monitor renal function Elevated troponin Chronic left on branch block EKG unchanged patient denies chest pain Troponin elevation likely demand ischemia due to BRANDI and infection Follows [facility] cardiology for chronic left bundle branch block, hypertension Last echocardiogram 09/21/2019 revealed EF 50%, grade 1 diastolic dysfunction Elevated LFTs Likely due to sepsis Known history of fatty liver disease Diarrhea Patient reports having 3 loose stools on the day of admission Consider stool studies if re-occurs Resolved DM II, controlled Last A1c 6.5 Hold Metformin Lantus/NovoLog per protocol Hypertension Resume lisinopril Continue metoprolol BPH on Flomax Prostatomegaly seen on CT No evidence of acute obstruction, Huerta catheter placed in ER - reportedly drained only 100 mL output Nephrolithiasis On CT There is a 9 mm calculus in the left renal pelvis seen on image and additional 3 mm nonobstructing calculus is seen in the left lower pole. Pulmonary Nodule Noted on CT Follow-up as outpatient DVT px: SQ Heparin Code Status FULL CODE Admission and Anticipated Discharge Date Admission Date: July 29, 2021 Subjective Patient is seen and examined at bedside No new complaints Eager to get discharged Afebrile today Minimal Cough Denies dyspnea Denies any chest pain, abdominal pain, nausea, dizziness Plan for 2 step today Review of Systems Review of Systems: All systems reviewed & are unremarkable except as noted in Subjective Physical Exam Physical Exam: Physical Exam: Vitals signs as noted above General Appearance:Moderately built and nourished, no apparent distress Head: normocephalic, Atraumatic Eyes: normal inspection, EOMI Neck: supple, Trachea midline Respiratory/Chest: Decreased breath sounds, CTA, No accessory muscle use Cardiovascular: S1, S2, No murmur Abdomen/GI:Soft, Non tender, Bowel sounds present Extremities/Musculoskeletal:normal inspection, 1+ B/L LE edema Neurologic/Psych:AAOX3, grossly no focal neurological deficits Skin: normal color, warm Results & Data Results & Data ([facility]) Vital Signs (Past 12 Hours) Vital Signs Temp Pulse Pulse Pulse Pulse Pulse Resp 08/01/21 09:27 107 H 107 H 103 H 08/01/21 07:12 36.6 C 86 16 08/01/21 03:17 36.5 C 90 18 08/01/21 01:31 73 07/31/21 23:40 36.8 C 89 18 Resp Resp Resp BP Pulse Ox Pulse Ox Pulse Ox 08/01/21 09:27 20 16 16 92 97 08/01/21 07:12 162/67 H 92 08/01/21 03:17 148/66 H 90 08/01/21 01:31 07/31/21 23:40 171/76 H 90 Pulse Ox 08/01/21 09:27 95 08/01/21 07:12 08/01/21 03:17 08/01/21 01:31 07/31/21 23:40 Laboratory Results Short CBC 08/01/21 Range/Units 05:18 WBC 16.46 H (4.8-10.8) K/uL Hgb 13.8 L (14.0-18.0) g/dL Hct 40.6 L (42-52) % Plt Count 225 (130-400) K/uL BMP 08/01/21 05:18 Sodium 138 Potassium 4.0 Chloride 107 Carbon Dioxide 24 BUN 12 Creatinine 1.11 Glucose 141 H Calcium 9.4 (1) Pneumonia Laterality: unspecified laterality Lung location: unspecified part of lung Pneumonia type: due to unspecified organism Qualified Code(s): J18.9 - Pneumonia, unspecified organism
--- NOTE | 2021-08-01 09:52 | Discharge Summary ---
Date of Service August 01, 2021 Admission HPI Per Admitting Provider This is a 81-year-old male who has significant past medical history of T2DM, HTN, HLD, COPD, chronic LBBB, mediastinal adenopathy with lung nodules followed by pulmonology, nonalcoholic fatty liver disease, CKD stage II, BPH, history of Covid pneumonia who presents to ED with at bedside secondary to upper respiratory symptoms x1 week and diarrhea x1 day. Of significance patient had sinus congestion, clear rhinorrhea, postnasal drip, dry cough x1 week. Today he had 3 episodes of loose stool. He also experienced diffuse body itching. He tried to see PCP, but was unable to get in and opted to seek ED. He was taking [id number] Benadryl and Robitussin without much improvement. He denies any fever, chills, sweats, lightheadedness, dizziness, syncope, chest pain or palpitations. He does admit to dyspnea on exertion for the past week but denies any shortness breath at rest, orthopnea or hemoptysis. He denies any nausea, vomiting, abdominal pain. He does notice difficulty with urine stream and increased urine urgency but denies any hematuria, dysuria, melena or hematochezia. He admits to history of Covid 19 pneumonia and since then admits, "there continues to be things wrong with me." He continues to have loss of taste and smell. He did lose approximately 15 pounds but this was post hospitalization after being diagnosed with diabetes and was intentional. His current appetite is diminished due to respiratory symptoms. He was diagnosed with COPD but states after getting over pneumonia stop taking his inhalers.In ED patient remained hemodynamically stable but he was noted to be mildly hypoxic with oxygen saturations 88 to 90% on room air. He was placed on 2 L. His lab abnormalities include leukocytosis to WBC 17.74k, BUN 34, creatinine 2.94, glucose 167, AST 39, ALT 97, alk phos 525, troponin 0.139, procalcitonin 0.89 and urinalysis concerning for infection. Chest x-ray was performed which was negative for acute abnormality. CT scan abdomen pelvis reveals left-sided nephrolithiasis, tree-in-bud airspace opacities at both lung bases suggestive of a noninfectious inflammatory pneumonitis, prostamegaly. He received IV Rocephin and azithromycin as well as IV fluids in ED. Admission Exam Per Admitting Provider Physical Exam Physical Exam: Constitutional: Elderly, nontoxic appearing male,WD/WN, vitals as above, NAD, sitting up in bed, pleasant, conversing easily Head: Normocephalic, Atraumatic Eyes: PERRL, conjunctivae normal, anicteric sclerae ENMT: external ear and nose normal, oropharynx normal Neck: trachea midline, no thyromegaly normal visual inspection Respiratory: normal respiratory effort, lungs clear to auscultation, right middle and lower lobe positive rhonchi, positive expiratory wheeze, no rales. Normal insp/exp effort, no accessory muscle use Cardiovascular: RRR, no murmur, no edema Vessels: no JVD or carotid bruit Chest: normal inspection of chest Abdomen: normal bowel sounds, soft, nontender, no hepatosplenomegaly Musculoskeletal: no cyanosis or clubbing, extremities motor strength 5/5 Skin: no rashes, warm and dry normal turgor Neurologic: PERRL, EOMI, accommodation nl, no face palsy, no dysarthria CN's II-XI intact bilaterally and moves all extremities Psychiatric: A+Ox3, euthymic affect Lymphatic: no cervical or axillary lymphadenopathy : Positive Huerta catheter draining yellow urine Principal Diagnosis Sepsis Pneumonia Acute kidney injury Discharge Data Allergies Allergy/AdvReac Type Severity Reaction Status Date / Time No Known Allergies Allergy Unknown Verified 07/29/21 14:11 Consultations 07/29/21 14:01 ED Decision to Admit Stat 07/29/21 16:26 Consult Nephrology Routine Ordered Studies 07/29/21 12:26 CT abd pelvis wo con Stat 07/29/21 16:22 CT chest diagnostic wo con Stat Hospital Course (1) Sepsis: (2) BRANDI (acute kidney injury): (3) Hypoxia: (4) Pneumonia: (5) UTI (urinary tract infection): (6) Elevated troponin: (7) Diabetes type 2, controlled: (8) Hypertension: (9) COPD (chronic obstructive pulmonary disease): Patient is an 81 yr male with H/O DM II, HTN, HLD, COPD, chronic LBBB, mediastinal adenopathy with lung nodules followed by pulmonology, nonalcoholic fatty liver disease, CKD stage II, BPH, history of Covid pneumonia who presents to ED with at bedside secondary to upper respiratory symptoms x1 week and diarrhea x1 day. Sepsis B/L Pneumonia UTI----Ruled Out Hypoxia--Resolved H/O COVID --Chest CT: Mild patchy bibasilar tree-in-bud airspace opacities are suggestive of a nonspecific infectious or inflammatory pneumonitis. 2.1 cm irregular nodular consolidative opacity of the posterior basal segment right lower lobe is new from the March 15, 2021 study and also likely infectious or inflammatory. A 3 month follow-up chest CT is needed to document resolution. Mild mediastinal adenopathy, likely reactive. Waxing and waning pulmonary nodules as above include stable groundglass nodules measuring up to 9 mm within the right upper lobe with a new 6 mm nodule of the posterior segment right upper lobe. . --Blood Cx: No growth to date --Urine Culture: Negative --Continue IV Rocephin, doxycycline Lactic acid WNL, procalcitonin 0.89 Continue pulmonary hygiene Patient follows with pulmonology Dr. Cobb as outpatient Procalcitonin normalized 2 step: Did not qualify for oxygen Transition to p.o. antibiotics upon discharge Acute Kidney Injury Baseline creatinine 0.9 on 05/23/2021 Cr: 2.94>1.45>1.1 Received IV fluid Appreciate nephrology input Avoid nephrotoxic agents as able Monitor renal function Elevated troponin Chronic left on branch block EKG unchanged patient denies chest pain Troponin elevation likely demand ischemia due to BRANDI and infection Follows [facility] cardiology for chronic left bundle branch block, hypertension Last echocardiogram 09/21/2019 revealed EF 50%, grade 1 diastolic dysfunction Elevated LFTs Likely due to sepsis Known history of fatty liver disease Diarrhea Patient reports having 3 loose stools on the day of admission Consider stool studies if re-occurs Resolved DM II, controlled Last A1c 6.5 Hold Metformin Lantus/NovoLog per protocol Hypertension Resume lisinopril Continue metoprolol BPH on Flomax Prostatomegaly seen on CT No evidence of acute obstruction, Huerta catheter placed in ER - reportedly drained only 100 mL output Nephrolithiasis On CT There is a 9 mm calculus in the left renal pelvis seen on image and additional 3 mm nonobstructing calculus is seen in the left lower pole. Pulmonary Nodule Noted on CT Follow-up as outpatient DVT px: SQ Heparin Code Status FULL CODE Total Time Total Time Spent Total Time Spent (In Minutes): 44 minutes Discharge Plan Discharge Items Patient Disposition: Home - Self-Care Reason For Visit: PNEUMONITIS, BRANDI, UTI, ELEVATED TROPONIN Discharge Diagnosis: Sepsis Pneumonia Acute kidney injury Activity: Per Instructions section Exercise/Sports: Gradually increase as tolerated Non-emergency contact: Primary Care Provider Call non-emergency contact if: you have any medication questions, your symptoms worsen, your pain is concerning for you and you have a fever Follow-up/Referrals: Tony Dupree MD [Primary Care Provider] - Diet: Carb Consistent or DM2 and Heart Healthy Addtl Attending Provider Instructions: Follow-up with on August 05, 2021 at 11:20 AM for primary care Follow-up with your research administrator Dr. Cobb in 4 weeks ----Complete antibiotic course--cefdinir, doxycycline as prescribed ----Your final blood cultures are pending at the time of discharge. Follow-up with your physician for results. Seek immediate medical attention if your symptoms reoccur or worsen Please take all medications as instructed on discharge list below. Please call if you have any questions or problems. You can reach a [facility] hospitalist on duty at [facility] 24 hours a day by calling [phone] Pending Studies at Discharge: Yes Studies:: Final Blood Cultures Stand-Alone Forms: My [facility], Smoking Cessation Medications and DC Order Prescriptions: New doxycycline hyclate 100 mg Capsule 100 mg PO BID 7 Days Qty: 14 RF: 0 fluticasone propionate 50 mcg/actuation Jackson,Suspension 2 spray NA DAILY Qty: 16 RF: 0 cefdinir 300 mg capsule 300 mg PO BID Qty: 14 RF: 0 Continued montelukast 10 mg tablet 10 mg PO DAILY RF: 0 metoprolol succinate 100 mg Tablet Extended Release 24 Hr 100 mg PO DAILY RF: 0 tamsulosin 0.4 mg Capsule 0.4 mg PO QPM RF: 0 atorvastatin 40 mg tablet 40 mg PO QPM RF: 0 lisinopril 10 mg tablet 10 mg PO QPM RF: 0 metformin 500 mg tablet extended release 24 hr 500 mg PO BID RF: 0 loratadine [Claritin] 10 mg Tablet 10 mg PO DAILY RF: 0 PreserVision AREDS 7,160 unit- 113 mg-100 unit Tablet 2 tab PO BID RF: 0 Discharge Orders: Discharge Order (Routine); Ordered 08/01/21 Ordered By: Pete Galdamez/Other Patient Handouts: A1C, High Blood Sugar (Hyperglycemia), Hypoglycemia (Low Blood Sugar), Managing Type 2 Diabetes Admission Data Admit Date/Time: 07/29/21 15:05 Attending Provider: Pete Davison Admit Provider: Theo Díaz Primary Care Provider: Tony Dupree Other Providers: Jaquan Castro ; Theo Díaz
== END 2021-08-01 14:10 | disposition home or self-care (01) | DRG 871 ==
LOC: ED 10:00 → EDINP 15:05 → SUATTDRO 15:05 → EDINP 19:08 → 2S 20:09